=== PATIENT | female | born 1930 | race African-American/Black ===

== ENCOUNTER 2016-05-21 05:12 | Inpatient (IN) ==
[2016-05-21] MEDS ORDERED: ALUM/MAG/SIMETH/LIDO VISC 1:1 30 ML BOTTLE PO STA (05:26)
[2016-05-21] MEDS ORDERED: NITROGLYCERIN 2% OINT 1 INCH/GM PACK TOP STA (05:26)
[2016-05-21] MEDS ORDERED: ONDANSETRON 4 MG/2 ML VIAL IV STA (05:26)
[2016-05-21] MEDS ORDERED: ASPIRIN 325 MG TABLET PO STA (05:26)
[2016-05-21] MEDS ORDERED: ALUM/MAG/SIMETH/LIDO VISC 1:1 30 ML BOTTLE PO ONE (05:30)
[2016-05-21] MEDS ORDERED: NITROGLYCERIN 2% OINT 1 INCH/GM PACK TOP ONE (05:30)
[2016-05-21] MEDS ORDERED: ONDANSETRON 4 MG/2 ML VIAL ONE (05:30)
[2016-05-21] MEDS ORDERED: ASPIRIN 325 MG TABLET ONE (05:30)
--- NOTE | 2016-05-21 05:30 | EKG Report ---
Stationary ECG Study [facility] ER Test Date: 05/21/2016 5:17:40 AM Pat Name: EVELYN ELISE Department: Room: Gender: F Bonding Machine Operator: : 1930 Requested by: Mark Anthony Anthony Order Number: [id number] Reading MD: ABHISHEK WELLINGTON Intervals [place] Rate: 80 P: 60 IA: 170 QRS: -54 QRSD: 98 T: 85 QT: 397 QTc: 433 Interpretive Statements SINUS RHYTHM PATTERN CONSISTENT WITH PULMONARY DISEASE LEFT ANTERIOR FASCICULAR BLOCK LEFT VENTRICULAR HYPERTROPHY AND ST-T CHANGE Electronically Signed On 05-21-16 05:46:57 BALANCE STAFF INSPECTOR by ABHISHEK WELLINGTON [id number]
[2016-05-21 05:38] LABS: Basophils # 0.1 10*3/uL (0.0-0.2); Basophils % 0.9 % (0.0-0.8); Eosinophils # 0.3 10*3/uL (0.0-0.87); Eosinophils % 5.2 % (0.00-10.9); Hematocrit 33.4 VOL% (35.7-47.0); Hemoglobin 10.9 GM/DL (12.0-16.0); Immature Granulocytes % 0.2 %; Immature Granulocytes Absolute 0.01 #; Lymphocytes # 2.3 10*3/uL (1.4-4.0); Lymphocytes % 35.8 % (21.3-54.2); Mean Corpuscular HGB Conc 32.6 GM/DL (32-36); Mean Corpuscular Hemoglobin 28 PG (27-34); Mean Corpuscular Volume 84.1 FL (87-102); Mean Platelet Volume 10.2 FL (9.6-12.0); Monocytes # 0.9 10*3/uL (0.11-0.8); Monocytes % 13.3 % (1.7-12.7); Neutrophils # 2.9 10*3/uL (1.4-7.4); Neutrophils % 44.6 % (38.7-73.9); Platelet Count 292 10*3/uL (130-400); Red Blood Count 3.97 10*6/uL (3.8-5.5); Red Cell Distribution Width 15.2 % (9.3-17.3); White Blood Count 6.4 10*3/uL (4.5-13.71)
--- NOTE | 2016-05-21 05:40 | Emergency Department Note ---
I, Cici Vaughn, am scribing for, and in the presence of, Mark Anthony Giraldo MD 05:32. IKritsal Charles R, MD, personally performed the services described in this documentation, ascribed by Cici Vaughn in my presence, and it is both accurate and complete [id number] . Arrival - Arrival ED Nursing Triage Note: PT ARRIVES VIA EMS WITH COMPLAINTS CHEST PAIN THAT STARTED WHEN SHE WOKE TO USE THE BATHROOM. PT TOOK 5 (FIVE) OF HER SL NITRO AND CALL EMS. DENIES ANY SOB, NAUSEA OR VOMITING. PT AT TIME OF TRIAGE STATES THAT SHE HAS "VERY LITTLE" PAIN. NO ACUTE DISTRESS NOTED Mode of Arrival: Stretcher Limitations: No Limitations Source: Patient - History of Present Illness Onset (ago): hour(s) Consistency: constant Severity: mild, moderate Severity scale (1-10): 3 Quality: sharp <Mark Anthony Giraldo - Last Filed: 05/21/16 05:41> <Don Emanuel - Last Filed: 05/21/16 05:45> - Arrival Chief Complaint: Chest Pain Stated Complaint: CHEST PAIN Time Seen by Provider: 05/21/16 05:23 - History of Present Illness HPI Narrative: Pt is a 85 y/o female that was brought to the ED via EMS for further evaluation of chest pain that occurred a few hours TREE KILLER. Pt states she does not currently have chest pain, SOB, nor did it radiate when she had it. She reports she woke up with the pain and took 5 nitroglycerin and called EMS, and she now complains of a massive TONY. Pt states she has a PMHx of DM and CHF. She also reports she has had CABG but does not know if she has stents saying "it was a long time ago. " Pt's poker manager is Dr. Dwyer. She also states she has been having swelling in her left leg for about a week now and had a doppler done on it May 10, 2016. No other complaints/pain in ED. (Mark Anthony Giraldo) Pt is a 85 y/o female that was brought to the ED via EMS for further evaluation of chest pain that occurred a few hours TREE KILLER. Pt states she does not currently have chest pain, SOB, nor did it radiate when she had it. She reports she woke up with the pain and took 5 nitroglycerin and called EMS, and she now complains of a massive TONY. Pt states she has a PMHx of DM and CHF. She also reports she has had CABG but does not know if she has stents saying "it was a long time ago. " Pt's poker manager is Dr. Dwyer. She also states she has been having swelling in her left leg for about a week now and had a doppler done on it May 10, 2016. No other complaints/pain in ED. (Cici Vaughn) Allergies/Adverse Reactions: Allergies Allergy/AdvReac Type Severity Reaction Status Date / Time codeine Allergy HIVES Verified 01/04/16 14:06 Penicillins Allergy RASH Verified 05/21/16 05:22 Sulfa (Sulfonamide Allergy RASH Verified 05/21/16 05:22 Antibiotics) Home Medications: Home Medications Medication Instructions Recorded Confirmed Type Aspirin [Ecotrin] 81 mg PO DAILY 01/04/16 05/21/16 History Dicyclomine Cap/Tab [Bentyl 20 mg PO QID PRN 01/04/16 05/21/16 History Cap/Tab] Esomeprazole Magnesium [Nexium] 40 mg PO DAILY 01/04/16 05/21/16 History Metoprolol Succinate 50 mg PO DAILY 01/04/16 05/21/16 History hydrALAZINE TAB [Apresoline Tab] 50 mg PO BID 01/04/16 05/21/16 History Aspirin EC Tab 81 mg PO DAILY #30 tablet 01/07/16 05/21/16 Rx Isosorbide Mononitrate [Imdur] 60 mg PO DAILY #30 tablet 01/07/16 05/21/16 Rx Nitroglycerin Sl Tab [Nitrostat] 0.4 mg SL Q5M PRN #25 tablet 01/07/16 05/21/16 Rx Rosuvastatin [Crestor] 10 mg PO BEDTIME #30 tablet 01/07/16 05/21/16 Rx Review of System - Review of System 12 point system: reviewed and no additional remarkable complaints except as stated - Review of System Constitutional: Absent: fever Respiratory: Absent: cough Cardiovascular: Present: chest pain (during episode but not currently in ED) Gastrointestinal: Absent: nausea, vomiting Musculoskeletal: Absent: arm pain, back pain, leg pain, neck pain Skin: Absent: rash Neurological: Present: headache. Absent: weakness, numbness, confusion Psychiatric: Absent: anxiety <Mark Anthony Giraldo - Last Filed: 05/21/16 05:41> Medical,Surgical,& Family Hx - Medical History Cardio: History of: CAD, Hypertension Endocrine: History of: Diabetes Mellitus (IDDM), Dyslipidemia Renal: History of: Renal Failure Gastrointestinal: History of: GERD - Surgical History Cardiac Surgeries: Sugical HX of: Cardiac Catheterization, Cardiac Surgery - Social History Smoking Status: Never smoker Frequency of Alcohol Use: None Type of Drug Use: None <Mark Anthony Giraldo R - Last Filed: 05/21/16 05:41> Exam - General General appearance: alert, in no apparent distress - Head Head exam: Present: atraumatic, normocephalic - Eye Eye exam: Present: PERRL, EOMI - ENT ENT exam: Present: mucous membranes moist. Absent: mucous membranes dry - Neck Neck exam: Present: full ROM. Absent: tenderness - Chest Chest inspection: Present: symmetric chest wall rise. Absent: tenderness - Respiratory Respiratory exam: Present: normal lung sounds bilaterally. Absent: respiratory distress - Cardiovascular Cardiovascular exam: Present: regular rate, normal rhythm, murmur (4 out of 6 systolic murmur) - Abdominal Exam Abdominal exam: Present: soft. Absent: tenderness - Extremities Exam Extremities exam: Present: full ROM, pedal edema (+2 pedal edema) - Back Exam Back exam: Present: full ROM. Absent: tenderness - Neurological Exam Neurological exam: Present: alert, oriented X3, CN II-XII intact. Absent: motor sensory deficit - Psychiatric Psychiatric exam: Present: normal affect, normal mood - Skin Skin exam: Present: warm, dry <Mark Anthony Giraldo - Last Filed: 05/21/16 05:41> Vital Signs: Vital Signs Temperature 97.8 F 05/21/16 05:12 Pulse Rate 85 05/21/16 05:12 Respiratory Rate 17 05/21/16 05:24 Blood Pressure 193/84 05/21/16 05:12 O2 Sat by Pulse Oximetry 98 05/21/16 05:12 (Mark Anthony Giraldo) (Cici Vaughn) (Don Emanuel) Course - Consultations Time: 05:40 <Mark Anthony Giraldo - Last Filed: 05/21/16 05:41> <Don Emanuel - Last Filed: 05/21/16 05:45> Course Narrative: Care assumed by Dr. Emanuel at 6 AM (Don Emanuel) - Consultations Consultation #1: Care was transferred to Dr. Emanuel ER physician (Mark Anthony Giraldo) Care was transferred to Dr. Emanuel ER physician (Cici Vaughn) Results - Labs CBC & BMP: 05/21/16 05:16 Lab Results: I have reviewed the patients labs <Mark Anthony Giraldo - Last Filed: 05/21/16 05:41> - Labs CBC & BMP: 05/21/16 05:16 <Don Emanuel - Last Filed: 05/21/16 05:45> - Labs Labs: Laboratory Tests 05/21/16 05:16 Hgb 10.9 L Hct 33.4 L MCV 84.1 L [place] % (Auto) 13.3 H Baso % (Auto) 0.[address] [place] # (Auto) 0.9 H (Cici Vaughn) Disposition Case discussed with: patient <Mark Anthony Giraldo - Last Filed: 05/21/16 05:41> Case discussed with: patient <Don Emanuel - Last Filed: 05/21/16 05:45> Clinical Impression: Chest pain, Chest pain, Essential (primary) hypertension, Dyslipidemia Disposition: Still a Patient Condition: Stable
[2016-05-21 05:46] LABS: PT Patient Result 11.1 SECS
[2016-05-21] MEDS ORDERED: ENOXAPARIN 80 MG/0.8 ML SYRINGE SUBCUT STA (06:09)
[2016-05-21 06:13] LABS: Albumin 3.3 G/DL (3.4-5.0); Bilirubin,Total 0.7 MG/DL (0.2-1.0); Calcium 8.2 MG/DL (8.5-10.1); Magnesium 2.3 MG/DL (1.8-2.4); Osmolality,Calculated 296.4 MOS/KG (273-304); Potassium 3.5 MMOL/L (3.5-5.1); Total Protein 6.7 G/DL (6.4-8.3)
[2016-05-21] MEDS ORDERED: ENOXAPARIN 80 MG/0.8 ML SYRINGE SUBCUT ONE (06:18)
--- NOTE | 2016-05-21 06:19 | XRay Report ---
Portable chest Date:[05/21/2016] Clinical history: Chest pain Comparison: 01/04/2016 Technique: Portable AP sitting chest Findings: The heart is minimally enlarged with prior median sternotomy. Calcification in the aortic knob. Chronic scarring in the lungs with atelectasis at the lung bases. Small left pleural effusion. Stable mediastinum with degenerative changes. Impression: Status post median sternotomy with chronic scarring. Small left pleural effusion with atelectasis/minimal infiltration at the lung bases. Followup chest x-ray recommended to document clearing. PROCEDURE INTERPRETED AT [facility] DEPARTMENT OF RADIOLOGY Final Report Signed by: Dr. Jacquelin Ortiz
[2016-05-21] MEDS ORDERED: MAGNESIUM SULF RIDER 4 GM in PREMIX 1 EACH IV PRN (08:16)
[2016-05-21] MEDS ORDERED: MAGNESIUM SULF RIDER 2 GM in PREMIX 1 EACH IV PRN (08:16)
[2016-05-21] MEDS ORDERED: ONDANSETRON 4 MG/2 ML VIAL IV PRN (08:16)
[2016-05-21] MEDS ORDERED: DOCUSATE SODIUM 100 MG CAPSULE PO PRN (08:16)
[2016-05-21] MEDS ORDERED: ZALEPLON 5 MG CAPSULE PO PRN (08:16)
[2016-05-21] MEDS ORDERED: DICYCLOMINE 20 MG TABLET PO PRN (08:18)
[2016-05-21] MEDS ORDERED: NITROGLYCERIN SL 0.4 MG TABLET SL PRN (08:18)
[2016-05-21] MEDS ORDERED: DEXTROSE 50% 25 GM/50 ML VIAL IV PRN (08:24)
[2016-05-21] MEDS ORDERED: GLUCAGON 1 MG VIAL IM PRN (08:24)
--- NOTE | 2016-05-21 08:24 | Cardiology History & Physical ---
Assessment and Plan (1) Chest pain Status: Acute Assessment and plan: 85-year-old female, history of CABG, chronic kidney disease stage IV, diabetes, hypertension, hyperlipidemia, presenting with chest pain, typical for angina, also with worsening lower extremity swelling. Borderline troponins. The pain was slow to respond to nitroglycerin. -CAD/ACS. Trend enzymes, repeak ECG, keep on telemetry. Continue aspirin. Load with Brilinta. Continue renally adjusted dose Lovenox for now. Cont statin. Cont imdur. -HTN. Increase hydralazine 100 mg to 3 times a day. Monitor heart rate closely , avoid reflex tachycardia. Incr metoprolol to 100 mg tid -CHF. lasix 40 mg iv today for edema. Some of this may be due to severe CKD. In the past, she was difficult to diurese due to the acute kidney injury. Will monitor closely. -Will also need to repeat a lower extremity DVT study. She is moderate risk for DVT/PE. -Echo. Systolic murmur, peaked S2 -Once the blood pressure is controlled, will proceed with a stress test. She had prior hospitalization with similar presentation, despite attempts with medical management. She has a history of remote CABG. High risk revascularization due to CKD but seems to fail medical management. -PPI Current Visit: Yes Qualifiers: Chest pain type: chest pain due to myocardial ischemia Qualified Code(s): I20.9 - Angina pectoris, unspecified (2) CKD (chronic kidney disease) stage 4, GFR 15-29 ml/min Status: Chronic Current Visit: No (3) S/P CABG (coronary artery bypass graft) Status: Chronic Current Visit: No (4) HTN (hypertension) Status: Chronic Current Visit: No Qualifiers: Hypertension type: essential hypertension Qualified Code(s): I10 - Essential (primary) hypertension (5) Essential (primary) hypertension Status: Acute Current Visit: Yes (6) Dyslipidemia Status: Acute Current Visit: Yes History of Present Illness Chief complaint: CP, HTN History of present illness: Ms. Harmon is a 85 year old female with history of remote CABG, followed by Dr. Dwyer. She was hospitalized with unstable angina, small STEMI few months ago and was treated medically. She has chronic kidney disease stage IV. She also has hypertension, which was poorly controlled. She was seen by Dr. Dwyer in May 10 for progressive lower extremity swelling, for 3 weeks. A lower extremity ultrasound ruled out DVT. She was hypertensive with systolic blood pressure in the 190s, hydralazine was increased to 100 mg twice a day. She felt better for a few days but yesterday she developed severe substernal chest pain at rest, which radiated inside. She was able to sleep but when she woke up this morning the pain recurred after she ambulated to the bathroom. She took 5 pills of nitroglycerin without relief. She came to the emergency room. Initial troponin 0.2, EKG shows borderline nonspecific changes. She is currently chest pain-free. She was hypertensive, with systolic blood pressure 180 on admission, now it's 160. She denies any black or bloody stools, bleeding issues, shortness of breath palpitations or syncope. She is compliant with her medications. Home Medications Medication Instructions Recorded Confirmed Type Aspirin [Ecotrin] 81 mg PO DAILY 01/04/16 05/21/16 History Dicyclomine Cap/Tab [Bentyl 20 mg PO QID PRN 01/04/16 05/21/16 History Cap/Tab] Esomeprazole Magnesium [Nexium] 40 mg PO DAILY 01/04/16 05/21/16 History Metoprolol Succinate 50 mg PO DAILY 01/04/16 05/21/16 History hydrALAZINE TAB [Apresoline Tab] 50 mg PO BID 01/04/16 05/21/16 History Aspirin EC Tab 81 mg PO DAILY #30 tablet 01/07/16 05/21/16 Rx Isosorbide Mononitrate [Imdur] 60 mg PO DAILY #30 tablet 01/07/16 05/21/16 Rx Nitroglycerin Sl Tab [Nitrostat] 0.4 mg SL Q5M PRN #25 tablet 01/07/16 05/21/16 Rx Rosuvastatin [Crestor] 10 mg PO BEDTIME #30 tablet 01/07/16 05/21/16 Rx Allergies Allergy/AdvReac Type Severity Reaction Status Date / Time codeine Allergy HIVES Verified 01/04/16 14:06 Penicillins Allergy RASH Verified 05/21/16 05:22 Sulfa (Sulfonamide Allergy RASH Verified 05/21/16 05:22 Antibiotics) 12 point system: reviewed and no additional remarkable complaints except as stated Medical,Surgical,& Family Hx - Medical History Cardio: History of: CAD, Hypertension Endocrine: History of: Diabetes Mellitus (IDDM), Dyslipidemia Renal: History of: Renal Failure Gastrointestinal: History of: GERD - Surgical History Cardiac Surgeries: Sugical HX of: Cardiac Catheterization, Cardiac Surgery - Social History Smoking Status: Never smoker Frequency of Alcohol Use: None Type of Drug Use: None Cardiology Physical Exam - Constitutional Vitals: Vital Signs Temp Pulse Resp BP Pulse Ox 97.8 F 85 17 193/84 98 05/21/16 05:12 05/21/16 05:12 05/21/16 05:24 05/21/16 05:12 05/21/16 05:12 Intake and Output 05/20/16 05/21/16 05/21/16 23:59 07:59 15:59 Other: Weight 70.307 kg Patient Weight 05/21/16 23:59 Weight 70.307 kg General appearance: normal weight - Head Head exam: Present: normal inspection - Eye Eye exam: Absent: conjunctival injection Pupils: Absent: constricted - ENT ENT exam: Present: normal exam - Neck Neck exam: Present: normal inspection - Respiratory Respiratory exam: Present: decreased breath sounds - Cardiovascular Cardiovascular exam: Present: regular rate and rhythm, systolic murmur - GI/Abdominal GI/Abdominal exam: Present: normal bowel sounds - Extremities Exam Extremities exam: Present: normal inspection, normal capillary refill, edema (2 + b/l) - Back Exam Back exam: Present: normal inspection - Neurological Exam Neurological exam: Present: alert, oriented X3 - Psychiatric Psychiatric exam: Present: normal affect, normal mood - Skin Skin exam: Present: normal color, warm. Absent: cyanosis Result/EKG - Labs CBC & BMP: 05/21/16 05:16 05/21/16 05:16 Lab Results: I have reviewed the past 24 hour labs Labs: Laboratory Results - last 24 hr 05/21/16 05/21/16 05/21/16 05:16 05:16 05:16 WBC 6.4 RBC 3.97 Hgb 10.9 L Hct 33.4 L MCV 84.1 L MCH 28 MCHC 32.6 RDW 15.2 Plt Count 292 MPV 10.2 Neut % (Auto) 44.6 Lymph % (Auto) 35.8 [place] % (Auto) 13.3 H Eos % (Auto) 5.2 Baso % (Auto) 0.9 H Neut # (Auto) 2.9 Lymph # (Auto) 2.3 [place] # (Auto) 0.9 H Eos # (Auto) 0.3 Baso # (Auto) 0.1 Immature Gran % 0.2 Nucleated RBC % 0.0 Immature Gran # 0.01 Nucleated RBCs # 0.00 INR 1.0 PT Patient/Control Mix 11.1 Sodium Potassium Chloride Carbon Dioxide Anion Gap BUN Creatinine GFR Calculation BUN/Creatinine Ratio Glucose Calculated Osmolality Calcium Magnesium Total Bilirubin AST ALT Alkaline Phosphatase Troponin I 0.288 H B-Natriuretic Peptide Total Protein Albumin Globulin Albumin/Globulin Ratio Lipase 05/21/16 05/21/16 05:16 05:16 WBC RBC Hgb Hct MCV MCH MCHC RDW Plt Count MPV Neut % (Auto) Lymph % (Auto) [place] % (Auto) Eos % (Auto) Baso % (Auto) Neut # (Auto) Lymph # (Auto) [place] # (Auto) Eos # (Auto) Baso # (Auto) Immature Gran % Nucleated RBC % Immature Gran # Nucleated RBCs # INR PT Patient/Control Mix Sodium 147 H Potassium 3.5 Chloride 111 H Carbon Dioxide 21 Anion Gap 18.5 H BUN 25 H Creatinine 2.40 H GFR Calculation 21 BUN/Creatinine Ratio 10.00 Glucose 110 H Calculated Osmolality 296.4 Calcium 8.2 L Magnesium 2.3 Total Bilirubin 0.70 AST 25 ALT 17 Alkaline Phosphatase 78 Troponin I B-Natriuretic Peptide 831 H Total Protein 6.7 Albumin 3.3 L Globulin 3.4 Albumin/Globulin Ratio 0.9 L Lipase 275.0 - EKG EKG results: interpreted by me Quality Measures - VTE Contraindication to Pharmacological VTE Prophylaxis: Already on Theraputic Agent , No Prophylaxis Needed
[2016-05-21] MEDS ORDERED: TICAGRELOR 90 MG TABLET PO STA (08:31)
[2016-05-21] MEDS ORDERED: NON-FORMULARY MEDICATION (Esomeprazole Magnesium [Nexium] 40 MG) PO SCH (09:00)
[2016-05-21] MEDS ORDERED: METOPROLOL SUCCINATE XL 50 MG TABLET PO SCH (09:00)
--- NOTE | 2016-05-21 09:35 | EKG Report ---
Stationary ECG Study [facility] ER Test Date: 05/21/2016 9:33:14 AM Pat Name: EVELYN ELISE Department: Room: Gender: F Microsoft Exchange Architect: CHAPARRITA : 1930 Requested by: Mark Anthony Anthony Order Number: [id number] Reading MD: ABHISHEK WELLINGTON Intervals [place] Rate: 75 P: 66 RI: 179 QRS: -61 QRSD: 96 T: 77 QT: 399 QTc: 427 Interpretive Statements SINUS RHYTHM MARKED LEFT AXIS DEVIATION MINIMAL VOLTAGE CRITERIA FOR LVH, CONSIDER NORMAL VARIANT NONSPECIFIC T-WAVE ABNORMALITY Electronically Signed On 05-21-16 20:51:46 CLASP MACHINE OPERATOR by ABHISHEK WELLINGTON [email or web address]
--- NOTE | 2016-05-21 09:48 | Ultrasound Report ---
Exam: Bilateral lower extremity venous Doppler ultrasound Comparison: 05/10/2016 Clinical history: Bilateral leg swelling Technique: Duplex scan of the lower extremity veins using B-mode/grayscale scaled imaging and Doppler spectral analysis and color flow. Findings: Major venous structures of the lower extremities demonstrate a normal course and caliber. Normal color-flow study and spectral analysis. There is normal compression and augmentation of bilateral common femoral, superficial femoral and popliteal veins. The proximal bilateral greater saphenous veins appear to be patent. Impression: No evidence to suggest deep venous thrombosis within either lower extremity. Ultrasound images were captured and stored. PROCEDURE INTERPRETED AT [facility] DEPARTMENT OF RADIOLOGY Final Report Signed by: Dr. Jacquelin Ortiz
[2016-05-21] MEDS: ASPIRIN EC 81 MG TABLET PO SCH (12:25)
[2016-05-21] MEDS: METOPROLOL SUCCINATE XL 100 MG TABLET PO SCH (12:26)
[2016-05-21] MEDS: PANTOPRAZOLE 40 MG TABLET PO SCH (12:26)
[2016-05-21] MEDS: ISOSORBIDE MONONITRATE 60 MG TABLET PO SCH (12:26)
--- NOTE | 2016-05-21 12:38 | EKG Report ---
Stationary ECG Study [facility] Test Date: 05/21/2016 12:36:33 PM Pat Name: EVELYN ELISE Department: Room: 293 Gender: F Player Development Executive: LISA : 1930 Requested by: Mark Anthony Anthony Order Number: [id number] Reading MD: ABHISHEK WELLINGTON Intervals [place] Rate: 69 P: 51 AR: 152 QRS: -83 QRSD: 90 T: 28 QT: 418 QTc: 438 Interpretive Statements SINUS RHYTHM INDETERMINATE AXIS S1-S2-S3 PATTERN, CONSISTENT WITH PULMONARY DISEASE, RVH, OR NORMAL VARIANT LEFT ANTERIOR FASCICULAR BLOCK Electronically Signed On 05-21-16 20:55:43 COSTUMED CHARACTER by ABHISHEK WELLINGTON [email or web address]
[2016-05-21] MEDS: INSULIN LISPRO 100 UNIT/ML SUBCUT SCH ×3 (13:01→21:41)
--- NOTE | 2016-05-21 19:05 | ECHO Report ---
Harmon Sparkle 05/21/2016 Exam Date: 10:14 Referring Physician: Maki Lopez Technologist: MYRA Age: 85 Ht (in): Wt (lb): FExam Location: [facility] Gender: Echo [id number]: Chest pain, unspecified, CAD with prIndications:evious CABG, Chronic kidney disease, stage 4 (severe), IDDM, Essential (primary) hypertension, Hyperlipidemia, unspecified, Cardiac murmur, unspecified, Heart failure, unspecified, Edema, unspecified BP: / HR: SinusRhythm: Technical Quality: IMPRESSIONS Normal left ventricular size, with mild concentric hypertrophy, with normal systolic function. Estimated left ventricular ejection fraction 55%. Grade 2 diastolic dysfunction. Dilated right-sided heart chambers with at least moderate pulmonary hypertension, severe tricuspid regurgitation. Moderate left atrial dilatation. Thickened mitral valve, with moderate regurgitation. Calcific aortic valve with moderate stenosis, with mild insufficiency. Moderate pulmonic valve insufficiency. MEASUREMENTS (Male / Female) Normal Values 2D ECHO LV Diastolic Diameter PLAX 4.4 cm 4.2 - 5.9 / 3.9 - 5.3 cm LV Systolic Diameter PLAX 2.8 cm LV Fractional Shortening PLAX 36.5 % IVS Diastolic Thickness 0.9 cm 0.6 - 1.0 / 0.6 - 0.9 cm LVPW Diastolic Thickness 0.9 cm 0.6 - 1.0 / 0.6 - 0.9 cm RV Internal Dim ED PLAX 3.3 cm Aortic Root Diameter 3.6 cm LA Systolic Diameter LX 4.0 cm 3.0 - 4.0 / 2.7 - 3.8 cm DOPPLER TR Peak Velocity 380.0 cm/s TR Peak Gradient 57.8 mmHg FINDINGS Left Ventricle Normal left ventricular size, with mild concentric hypertrophy, with normal systolic function. Estimated left ventricular ejection fraction 55%. Grade 2 diastolic dysfunction. Right Ventricle The right ventricle is moderately dilated, with normal systolic function. Right Atrium Severely dilated right atrium. Left Atrium Moderately increased left atrial size. Mitral Valve Thickened mitral valve. Moderate mitral regurgitation. Aortic Valve Thickened aortic valve. Moderate aortic stenosis, peak gradient 56, mean gradient 31 mmHg, calculated valve area of 1.1 cm. Mild insufficiency. Tricuspid Valve Morphologically normal tricuspid valve. Severe tricuspid valve regurgitation. Tricuspid regurgitation velocities suggest a PAP of 58 mmHg + RA pressure. The severity of pulmonary hypertension may be underestimated due to the severity of the tricuspid regurgitation. Pulmonic Valve Morphologically normal pulmonic valve. Moderate pulmonary valve regurgitation. Pericardium Normal pericardium without effusion. Aorta Normal ascending aorta dimension. Calin Wagoner (Electronically Signed) 21 May 2016 Final Date: 19:04
[2016-05-21] MEDS: ROSUVASTATIN 10 MG TABLET PO SCH (21:41)
[2016-05-22 05:18] LABS: Basophils # 0.1 10*3/uL (0.0-0.2); Basophils % 1.2 % (0.0-0.8); Eosinophils # 0.2 10*3/uL (0.0-0.87); Hematocrit 28.2 VOL% (35.7-47.0); Hemoglobin 9.3 GM/DL (12.0-16.0); Immature Granulocytes % 0.2 %; Immature Granulocytes Absolute 0.01 #; Lymphocytes # 1.6 10*3/uL (1.4-4.0); Lymphocytes % 26.7 % (21.3-54.2); Mean Corpuscular Hemoglobin 27 PG (27-34); Mean Corpuscular Volume 83.2 FL (87-102); Mean Platelet Volume 10.4 FL (9.6-12.0); Monocytes # 0.9 10*3/uL (0.11-0.8); Monocytes % 15.4 % (1.7-12.7); Neutrophils # 3.2 10*3/uL (1.4-7.4); Neutrophils % 52.5 % (38.7-73.9); Platelet Count 278 10*3/uL (130-400); Red Blood Count 3.39 10*6/uL (3.8-5.5); Red Cell Distribution Width 15.3 % (9.3-17.3)
[2016-05-22 05:44] LABS: Calcium 7.9 MG/DL (8.5-10.1); Magnesium 2.2 MG/DL (1.8-2.4); Osmolality,Calculated 298.1 MOS/KG (273-304)
[2016-05-22] MEDS ORDERED: ENOXAPARIN 80 MG/0.8 ML SYRINGE SUBCUT SCH (09:00)
--- NOTE | 2016-05-22 09:46 | Cardiology Progress Note ---
Assessment and Plan - Time spent with patient Time spent with patient: Less than 30 minutes (1) Chest pain Status: Acute Assessment and plan: See plan of care below Current Visit: Yes Qualifiers: Chest pain type: chest pain due to myocardial ischemia Qualified Code(s): I20.9 - Angina pectoris, unspecified (2) Dyslipidemia Status: Chronic Assessment and plan: Continue lipid lowering agent Current Visit: Yes (3) Essential (primary) hypertension Status: Chronic Assessment and plan: Much better controlled Current Visit: Yes (4) CAD (coronary artery disease) Status: Chronic Assessment and plan: Current plan of care continues Current Visit: No Qualifiers: Coronary Disease-Associated Artery/Lesion type: [place] artery [place] vs. transplanted heart: [place] heart Associated angina: with stable angina Qualified Code(s): I25.119 - Atherosclerotic heart disease of [place] coronary artery with unspecified angina pectoris (5) CKD (chronic kidney disease) stage 4, GFR 15-29 ml/min Status: Chronic Current Visit: No (6) HTN (hypertension) Status: Chronic Current Visit: No Qualifiers: Hypertension type: essential hypertension Qualified Code(s): I10 - Essential (primary) hypertension (7) S/P CABG (coronary artery bypass graft) Status: Chronic Current Visit: No Cardiology - PN: Subj Interval history: Ms. Harmon is a 85 year old female with history of remote CABG, followed by Dr. Dwyer. She was hospitalized with unstable angina, small STEMI few months ago and was treated medically. She has chronic kidney disease stage IV. She also has hypertension, which was poorly controlled. She was seen by Dr. Dwyer in May 10 for progressive lower extremity swelling, for 3 weeks. A lower extremity ultrasound ruled out DVT. She was hypertensive with systolic blood pressure in the 190s, hydralazine was increased to 100 mg twice a day. She presented to the ER May 21, 2016 with complaints of severe substernal chest pain at rest. Initial troponin 0.2, (max 0.3), EKG showed borderline nonspecific changes. She is currently chest pain-free. She was hypertensive, with systolic blood pressure 180 on admission, now it's improved with medication adjustments. NPO for stress testing this morning. No recurrent chest pain. Breathing is non -labored. -CAD/ACS. - NPO for stress test this morning. Continue aspirin, she has been loaded with Brilinta and taking daily now. (May consider increasing to BID dosing). Continue renally adjusted dose Lovenox for now. Cont statin. Cont imdur. -HTN. - better controlled with increased hydralazine 100 mg to 3 times a day. Monitor heart rate closely, avoid reflex tachycardia. Increased metoprolol to 100 mg tid yesterday as well -CHF - Received Lasix 40 mg iv yesterday. I & O not recorded. Weight suspected to be inaccurate. In the past, she was difficult to diurese due to the acute kidney injury. Will monitor closely. -DVT study negative. She is moderate risk for DVT/PE. -Echo - revelas EF 55%, Grade 2 DD, Moderate MR, Moderate , PAP 58mmHg + RAP - continue current plan of care. -History of remote CABG. High risk revascularization due to CKD but seems to fail medical management. -PPI continues Exam (Progress Note) - Constitutional Vitals: Period Temp Pulse Resp BP Sys/Escalante Pulse Ox Last 24 Hr 98.1 F-99.4 F 59-73 16-20 122-162/50-73 94-98 General appearance: normal weight, no acute distress - Head Head exam: Present: normocephalic, atraumatic - Eye Eye exam: Absent: nystagmus, periorbital swelling Pupils: Present: [place]. Absent: constricted - ENT ENT exam: Present: normal external ear exam, normal oropharynx - Neck Neck exam: Absent: lymphadenopathy, tenderness - Respiratory Respiratory exam: Absent: accessory muscle use, decreased breath sounds - Cardiovascular Cardiovascular exam: Present: regular rate and rhythm, systolic murmur (II/ LAUREN heard best at BUSB). Absent: gallop - GI/Abdominal GI/Abdominal exam: Present: normal bowel sounds, soft. Absent: mass, tenderness - Extremities Exam Extremities exam: Present: normal capillary refill, full ROM. Absent: calf tenderness - Back Exam Back exam: Absent: CVA tenderness (L), CVA tenderness (R) - Neurological Exam Neurological exam: Present: alert, oriented X3, normal gait - Psychiatric Psychiatric exam: Present: normal affect, normal mood. Absent: anxious - Skin Skin exam: Present: warm, dry. Absent: rash Result/EKG - Labs CBC & BMP: 05/22/16 04:35 05/22/16 04:35 Lab Results: I have reviewed the past 24 hour labs Labs: Laboratory Results - last 24 hr 05/21/16 05/21/16 05/21/16 09:37 15:47 19:34 WBC RBC Hgb Hct MCV MCH MCHC RDW Plt Count MPV Neut % (Auto) Lymph % (Auto) [place] % (Auto) Eos % (Auto) Baso % (Auto) Neut # (Auto) Lymph # (Auto) [place] # (Auto) Eos # (Auto) Baso # (Auto) Immature Gran % Nucleated RBC % Immature Gran # Nucleated RBCs # Sodium Potassium Chloride Carbon Dioxide Anion Gap BUN Creatinine GFR Calculation BUN/Creatinine Ratio Glucose POC Glucose 151 H 144 H Calculated Osmolality Calcium Magnesium Troponin I 0.371 H D 05/22/16 05/22/16 05/22/16 04:35 04:35 08:08 WBC 6.0 RBC 3.39 L Hgb 9.3 L Hct 28.2 L MCV 83.2 L MCH 27 MCHC 33.0 RDW 15.3 Plt Count 278 MPV 10.4 Neut % (Auto) 52.5 Lymph % (Auto) 26.7 [place] % (Auto) 15.4 H Eos % (Auto) 4.0 Baso % (Auto) 1.2 H Neut # (Auto) 3.2 Lymph # (Auto) 1.6 [place] # (Auto) 0.9 H Eos # (Auto) 0.2 Baso # (Auto) 0.1 Immature Gran % 0.2 Nucleated RBC % 0.0 Immature Gran # 0.01 Nucleated RBCs # 0.00 Sodium 149 H Potassium 4.0 Chloride 113 H Carbon Dioxide 24 Anion Gap 16.0 H BUN 23 H Creatinine 2.60 H GFR Calculation 17 BUN/Creatinine Ratio 8.00 Glucose 79 POC Glucose 83 Calculated Osmolality 298.1 Calcium 7.9 L Magnesium 2.2 Troponin I - Diagnostic Findings Procedure: Chest x-ray: report reviewed by me, Ultrasound: report reviewed by me - EKG EKG results: interpreted by me EKG shows: sinus rhythm Quality Measures - VTE Contraindication to Pharmacological VTE Prophylaxis: Already on Theraputic Agent , No Prophylaxis Needed
[2016-05-22] MEDS ORDERED: REGADENOSON 0.4 MG/5 ML SYRINGE IV ONE (10:08)
--- NOTE | 2016-05-22 10:21 | Event Note ---
Underwent Lexiscan stress testing without complaints of chest pain, heaviness. No EKG or ST changes. Now to Nuclear Medicine for final scan. Dr. Wagoner to read , interpret and advise.
[2016-05-22] MEDS: ISOSORBIDE MONONITRATE 60 MG TABLET PO SCH (11:02)
[2016-05-22] MEDS: METOPROLOL SUCCINATE XL 100 MG TABLET PO SCH (11:02)
[2016-05-22] MEDS: ASPIRIN EC 81 MG TABLET PO SCH (11:02)
[2016-05-22] MEDS: TICAGRELOR 90 MG TABLET PO SCH (11:02)
[2016-05-22] MEDS: PANTOPRAZOLE 40 MG TABLET PO SCH (11:02)
[2016-05-22] MEDS: INSULIN LISPRO 100 UNIT/ML SUBCUT SCH ×4 (11:21→20:36)
[2016-05-22] MEDS: ACETAMINOPHEN 325 MG TABLET PO PRN (12:22)
[2016-05-22] MEDS ORDERED: IBUPROFEN 200 MG TABLET PO ONE (13:50)
--- NOTE | 2016-05-22 17:49 | Event Note ---
The patient had an acute coronary syndrome with mild bump in cardiac enzymes and an abnormal stress test. She has had similar episodes in the past as well. She has not been doing well with conservative management and Dr. Ashford asked me to review the patient's case and consider cardiac catheterization. I reviewed her chart, tests, notes, medications. I discussed the potential for cardiac catheterization including the risks and alternatives. The patient wants to think about this and discuss it with her children which I think is quite appropriate. I have asked the nursing staff to keep her nothing by mouth except meds in the morning in case the patient and family wish to proceed to cardiac catheterization. I will check in tomorrow to see what they would like to do.
[2016-05-22] MEDS: ROSUVASTATIN 10 MG TABLET PO SCH (20:36)
[2016-05-23 05:44] LABS: Basophils # 0.1 10*3/uL (0.0-0.2); Basophils % 1.1 % (0.0-0.8); Eosinophils # 0.3 10*3/uL (0.0-0.87); Eosinophils % 3.9 % (0.00-10.9); Hematocrit 29.7 VOL% (35.7-47.0); Hemoglobin 9.9 GM/DL (12.0-16.0); Immature Granulocytes % 0.3 %; Immature Granulocytes Absolute 0.02 #; Lymphocytes # 1.7 10*3/uL (1.4-4.0); Lymphocytes % 25.9 % (21.3-54.2); Mean Corpuscular HGB Conc 33.3 GM/DL (32-36); Mean Corpuscular Hemoglobin 28 PG (27-34); Mean Corpuscular Volume 84.1 FL (87-102); Mean Platelet Volume 10.4 FL (9.6-12.0); Monocytes % 14.8 % (1.7-12.7); Neutrophils # 3.6 10*3/uL (1.4-7.4); Platelet Count 265 10*3/uL (130-400); Red Blood Count 3.53 10*6/uL (3.8-5.5); Red Cell Distribution Width 15.2 % (9.3-17.3); White Blood Count 6.6 10*3/uL (4.5-13.71)
[2016-05-23 06:18] LABS: Calcium 8.2 MG/DL (8.5-10.1); Magnesium 2.3 MG/DL (1.8-2.4); Osmolality,Calculated 294.4 MOS/KG (273-304)
--- NOTE | 2016-05-23 07:26 | Nuclear Medicine Report ---
TEST PERFORMED AND INTERPRETED BY: Dr. Lynnette Wagoner REASON FOR STRESS TEST: Chest pain. PROCEDURE: At rest, 10 mCi of Technetium 99 labeled Sestamibi was injected and rest images were obtained. The patient attempted the treadmill stress test, but due to gait instability this was transformed to a Lexiscan stress test, and 0.4 Lexiscan was injected IV. Post pharmacological stress, 30 mCi of Technetium 99 labeled Sestamibi was injected and post stress images were obtained. RESULTS: The resting blood pressure of 148/78 mmHg jessica to 162/78 mmHg post Lexiscan injection. A resting heart rate of 60 jessica to 75 beats per minute. There was no chest pain. At rest, EKG shows sinus rhythm with poor R-wave progression and flat T waves from V1 to V4, no significant ST-T changes post Lexiscan injection. Rest and post stress gated and perfusion images were obtained. There are no significant motion artifacts. The gated images show end -diastolic volume of 71 cc, end-systolic volume of 71 cc, calculated left ventricular ejection fraction 70%. Rest perfusion images show a moderate sized area in the mid to distal inferolateral/apical region of mild electrical activity, which becomes moderately to severely photopenic post Lexiscan injection. This is suggestive of reversible ischemia. CONCLUSIONS: 1. CLINICALLY NEGATIVE, ELECTRICALLY NONDIAGNOSTIC LEXISCAN STRESS TEST. 2. NORMAL LEFT VENTRICULAR SIZE, WITH NORMAL SYSTOLIC FUNCTION WITH REVERSIBLE ISCHEMIA IN THE MID/DISTAL INFERIOR/INFEROLATERAL/APICAL REGION. 3. THIS IS A MODERATE RISK TEST. Procedure performed and interpreted at [facility] Department of Radiology. CAMI
[2016-05-23] MEDS: INSULIN LISPRO 100 UNIT/ML SUBCUT SCH ×4 (08:22→21:27)
[2016-05-23] MEDS ORDERED: diphenhydrAMINE CAP 50 MG CAPSULE PO ONE (09:39)
[2016-05-23] MEDS: ASPIRIN EC 81 MG TABLET PO SCH (09:40)
[2016-05-23] MEDS: ISOSORBIDE MONONITRATE 60 MG TABLET PO SCH (09:40)
[2016-05-23] MEDS: METOPROLOL SUCCINATE XL 100 MG TABLET PO SCH (09:40)
[2016-05-23] MEDS: PANTOPRAZOLE 40 MG TABLET PO SCH (09:40)
[2016-05-23] MEDS ORDERED: DIAZEPAM 5 MG TABLET PO ONE (09:40)
[2016-05-23] MEDS: ACETYLCYSTEINE 600 MG CAPSULE PO SCH ×2 (09:40→21:41)
[2016-05-23] MEDS: SODIUM BICARB INJ 50 MEQ in SODIUM CHLORIDE 0.45% 1,000 ML IV SCH ×2 (09:41→21:01)
[2016-05-23] MEDS: TICAGRELOR 90 MG TABLET PO SCH (09:41)
[2016-05-23] MEDS ORDERED: HEPARIN/NACL 0.9% 2 UNITS/ML 1,000 ML IV ONE (10:22)
[2016-05-23] MEDS ORDERED: LIDOCAINE 1% 20 ML VIAL ONE (10:46)
[2016-05-23] MEDS ORDERED: HYDROmorphone 2 MG/1 ML VIAL ONE (10:46)
[2016-05-23] MEDS ORDERED: ENOXAPARIN 30 MG/0.3 ML SYRINGE ONE (11:17)
[2016-05-23] MEDS ORDERED: TICAGRELOR 90 MG TABLET ONE (12:09)
[2016-05-23] MEDS ORDERED: LABETALOL 20 MG/4 ML SYRINGE IV ONE (12:21)
--- NOTE | 2016-05-23 12:26 | Cardiac Catheterization ---
Date of Procedure:: 05/23/16 Procedure: CLINICAL SUMMARY: The patient presented with an acute coronary syndrome and is undergoing cardiac catheterization for definitive coronary artery assessment and possible revascularization. PROCEDURES PERFORMED: 1. Right femoral percutaneous arteriotomy 2. Left heart catheterization. 3. Resting hemodynamics. 4. Left ventriculography. 5. Coronary arteriography. 6. Right femoral arteriogram. 7. Angio-Seal closure of the right femoral artery. 8. Left internal mammary bypass graft selective angiography. 9. Percutaneous coronary intervention to the mid posterior descending artery with a 2.5 x 12 mm Xience Alpine drug-eluting stent.. 10. Percutaneous coronary intervention with balloon angioplasty of a side branch in the mid posterior descending artery which was jailed by the stent. DESCRIPTION OF PROCEDURE: After obtaining informed consent, the patient was brought to the cardiac catheterization lab where the right groin was prepped and draped in the usual sterile manner. Using IV sedation, local anesthesia, and Modified Seldinger technique, a needle was placed in the right femoral artery and a sheath was positioned without difficulty. A left coronary catheter was advanced over a guidewire under fluoroscopic control to the ascending aorta where a cardiac swing angiograms performed of the left coronary system. We used this approach to try to minimize contrast exposure. After adequate angiograms, this catheter was withdrawn and a right coronary catheter was advanced over a guidewire under fluoroscopic control to the ascending aorta with angiograms of the RCA and left internal mammary artery bypass graft were undertaken in numerous projections. We then proceeded directly to percutaneous coronary intervention. The right coronary artery had an extreme anterior takeoff and several guides were tried before we finally successfully engaged the vessel with a short AR-1 guide catheter. We passed a PT Graphix wire beyond the area of stenosis in the mid posterior descending artery and performed balloon angioplasty with a 2.5 x 12 mm [place] angioplasty balloon. We then placed a 2.5 x 12 mm Xience Alpine drug-eluting stent in this location. There was some residual stenosis just proximal to the stent and we performed balloon angioplasty of this location with the stent balloon. We then pulled our wire back and advanced it into the side branch which was jailed by the stent. We performed balloon angioplasty of the ostium of this branch with a 2.25 x 12 mm [place] angioplasty balloon. Follow-up A right femoral arteriogram was performed showing adequate sheath placement for closure device deployment. The sheath was then removed and an Angio-Seal device was used to obtain hemostasis. The patient was transferred back to the room having suffered no immediate complications. HEMODYNAMICS: See the accompanying data sheet. CORONARY ARTERIOGRAPHY: LEFT MAIN: The left main coronary artery is a large caliber vessel, which trifurcates into the left anterior descending, ramus intermedius, and left circumflex coronary arteries. The left main coronary artery has a 30-40% distal tapering. LEFT CIRCUMFLEX: The left circumflex coronary artery is a moderate size vessel which gives off a couple of small obtuse marginal/posterolateral branches. There are diffuse luminal irregularities of up to 30-40% in the circumflex coronary artery but no high-grade lesions are seen. RAMUS INTERMEDIUS: Ramus intermedius is a moderate size vessel which courses over the anterolateral wall. There is a lesion of around 50% in its midsegment and otherwise there are some mild luminal irregularities, but I don't see any high-grade disease. LEFT ANTERIOR DESCENDING: The left anterior descending artery is occluded at its origin from the left main coronary artery, but the distal vessel is seen filling via patent left internal mammary arterial graft. RIGHT CORONARY ARTERY: The right coronary artery is a moderate size vessel which gives off a posterior descending artery and a posterolateral system. There is a 40% ostial stenosis and there are diffuse moderate luminal irregularities of up to 40-50% in the mid right coronary artery. There is a focal 99% stenosis involving a bifurcation point in the mid posterior descending artery. There is a 60% stenosis just proximal to this high-grade lesion. LEFT INTERNAL MAMMARY TO LEFT ANTERIOR DESCENDING: This is a moderate size bypass graft which is widely patent throughout its course. PERIPHERAL ARTERIOGRAPHY: Right femoral arteriogram shows a normal right iliofemoral artery with adequate sheath placement for closure device deployment. IMPRESSIONS: 1. Successful percutaneous coronary intervention to the mid posterior descending artery with stenting of the largest branch with a 2.5 x 12 mm Xience Alpine drug-eluting stent and balloon angioplasty of the side branch as described above. 2. Patent left internal mammary to left anterior descending coronary artery graft. 3. Mild to moderate residual disease in the left circumflex, ramus intermedius , and right coronary arteries which would manage medically at this time. 4. Normal right iliofemoral system with successful Angio-Seal closure of this vessel. PLAN: Because of the patient's renal insufficiency, we attempted to minimize contrast exposure during this procedure. We did successfully revascularized a high-grade lesion in the mid posterior descending artery. Hopefully this will alleviate the patient's recurrent unstable angina symptoms. There were no apparent problems or complications during the procedure. She will be transferred back to telemetry and will watch her renal function closely. Anesthesia: minimal conscious sedation Surgeon / Physician: Frantz Duggan Estimated blood loss: minimal Condition: stable Disposition: floor - Medications / Follow-up
[2016-05-23] MEDS ORDERED: SODIUM CHLORIDE 0.9% 1,000 ML IV SCH (12:30)
--- NOTE | 2016-05-23 13:12 | Cardiology Progress Note ---
Assessment and Plan (1) Unstable angina Status: Acute Assessment and plan: Successful stenting of the mid posterior descending artery as detailed in the cath report. We used a 2.5 x 12 mm Xience Alpine drug-eluting stent. Current Visit: Yes (2) Status post insertion of drug eluting coronary artery stent Status: Acute Current Visit: Yes (3) Dyslipidemia Status: Chronic Current Visit: Yes (4) Essential (primary) hypertension Status: Chronic Current Visit: Yes (5) CAD (coronary artery disease) Status: Chronic Current Visit: No Qualifiers: Coronary Disease-Associated Artery/Lesion type: [place] artery [place] vs. transplanted heart: [place] heart Associated angina: with stable angina Qualified Code(s): I25.119 - Atherosclerotic heart disease of [place] coronary artery with unspecified angina pectoris (6) CKD (chronic kidney disease) stage 4, GFR 15-29 ml/min Status: Chronic Assessment and plan: We'll have to watch her renal function closely after contrast exposure. She has been treated with Mucomyst, hydration, and bicarbonate. Current Visit: No (7) HTN (hypertension) Status: Chronic Current Visit: No Qualifiers: Hypertension type: essential hypertension Qualified Code(s): I10 - Essential (primary) hypertension (8) S/P CABG (coronary artery bypass graft) Status: Chronic Current Visit: No Cardiology - PN: Subj Interval history: The patient did well overnight. She had no new cardiac problems or complications. We took her to cardiac catheterization today which did demonstrate a high-grade lesion in the mid posterior descending artery of the bifurcation point. We successfully stented this with a 2.5 x 12 mm Xience Alpine drug-eluting stent. The stent did intermediate the side branch so we performed balloon angioplasty through the site of stent into the side branch. There were no problems or complications with the procedure. Because of the patient's renal insufficiency we did not perform ventriculogram, and try to limit her contrast exposure as much as possible. I think we ended up using less than 90 mL of contrast for the procedure. We will keep a close eye on her renal function. Hopefully this will alleviate the patient's recurrent unstable angina symptoms. Current Medications Acetaminophen (Tylenol Tab) 650 mg PO Q4H PRN PRN Reason: Fever, Headache, Mild Pain Last Admin: 05/22/16 12:22 Dose: 650 mg Acetylcysteine (Mucomyst Cap (Renal Protect)) 600 mg PO BID [facility] Last Admin: 05/23/16 09:40 Dose: 600 mg Aspirin () 81 mg PO DAILY [facility] Last Admin: 05/23/16 09:40 Dose: 81 mg Dextrose/Water (D50) 25 gm IV PRN PRN PRN Reason: Hypoglycemia with IV access Dicyclomine HCl (Bentyl Cap/Tab) 20 mg PO QID PRN PRN Reason: Abdominal Pain Docusate Sodium (Colace Cap) 100 mg PO BID PRN PRN Reason: Constipation Glucagon () 1 mg IM PRN PRN PRN Reason: Hypoglycemia w/o IV access Hydralazine HCl (Apresoline Tab) 100 mg PO TID [facility] Last Admin: 05/23/16 09:40 Dose: 100 mg Magnesium Sulfate 2 gm/ Premix 50 mls @ 25 mls/hr IV .PER PROTOCOL PRN; Protocol PRN Reason: Per Protocol Magnesium Sulfate 4 gm/ Premix 100 mls @ 25 mls/hr IV .PER PROTOCOL PRN; Protocol PRN Reason: Per Protocol Sodium Bicarbonate 50 meq/ (Sodium Chloride) 1,050 mls @ 100 mls/hr IV .[id number] [facility] Last Admin: 05/23/16 09:41 Dose: 100 mls/hr Sodium Chloride (Ns) 1,000 mls @ 125 mls/hr IV .Q8H [facility] Stop: 05/23/16 20:29 Insulin Human Lispro (Humalog) 0 unit SUBCUT ACHS [facility] PRN Reason: Protocol Last Admin: 05/23/16 08:22 Dose: Not Given Isosorbide Mononitrate (Imdur) 60 mg PO DAILY [facility] Last Admin: 05/23/16 09:40 Dose: 60 mg Metoprolol Succinate (Toprol Xl) 100 mg PO DAILY [facility] Last Admin: 05/23/16 09:40 Dose: 100 mg Nitroglycerin (Nitrostat) 0.4 mg SL Q5M PRN PRN Reason: Chest Pain Ondansetron HCl (Zofran Inj) 4 mg IV Q4H PRN PRN Reason: Nausea Pantoprazole Sodium (Protonix Tab) 40 mg PO DAILY [facility] Last Admin: 05/23/16 09:40 Dose: 40 mg Rosuvastatin Calcium (Crestor) 10 mg PO BEDTIME [facility] Last Admin: 05/22/16 20:36 Dose: 10 mg Ticagrelor (Brilinta) 90 mg PO DAILY [facility] Last Admin: 05/23/16 09:41 Dose: 90 mg Zaleplon (Sonata) 5 mg PO BEDTIME PRN PRN Reason: Insomnia Exam (Progress Note) - Constitutional Exam: General: Frail, elderly in no acute distress HEENT: Normocephalic, atraumatic Neck: Supple Neck, Midline Trachea Cardiac: Regular Rhythm, 2 out of 6 Murmur, no gallop, no rub Lungs: Clear to Ascultation, No Wheeze, Rales, Rhonchi Neuro: Cranial Nerve 2-12 Intact, diffuse generalized weakness Abdomen: Soft, Active Bowel Sounds, No Masses, No Pulsations/Bruits Skin: Normal color, no rash Extremities: No Clubbing, No Cyanosis, No Edema, Normal Upper Extr. Pulses Musculoskeletal: No acute abnormality noted Psychiatric: The patient is alert and oriented. The patient has a flat affect but does not appear to be anxious or depressed. Result/EKG - Labs CBC & BMP: 05/23/16 05:15 05/23/16 05:15 Lab Results: I have reviewed the past 24 hour labs - EKG EKG results: interpreted by me Quality Measures - VTE Contraindication to Pharmacological VTE Prophylaxis: Already on Theraputic Agent , No Prophylaxis Needed
[2016-05-23] MEDS: ROSUVASTATIN 10 MG TABLET PO SCH (21:02)
[2016-05-24 06:21] LABS: Basophils # 0.1 10*3/uL (0.0-0.2); Basophils % 0.6 % (0.0-0.8); Hematocrit 29.6 VOL% (35.7-47.0); Hemoglobin 9.6 GM/DL (12.0-16.0); Immature Granulocytes % 0.2 %; Immature Granulocytes Absolute 0.02 #; Lymphocytes # 1.4 10*3/uL (1.4-4.0); Lymphocytes % 16.8 % (21.3-54.2); Mean Corpuscular HGB Conc 32.4 GM/DL (32-36); Mean Corpuscular Hemoglobin 27 PG (27-34); Mean Corpuscular Volume 83.9 FL (87-102); Mean Platelet Volume 9.9 FL (9.6-12.0); Monocytes % 12.2 % (1.7-12.7); Neutrophils # 5.8 10*3/uL (1.4-7.4); Neutrophils % 70.2 % (38.7-73.9); Platelet Count 274 10*3/uL (130-400); Red Blood Count 3.53 10*6/uL (3.8-5.5); Red Cell Distribution Width 15.2 % (9.3-17.3); White Blood Count 8.2 10*3/uL (4.5-13.71)
[2016-05-24 06:47] LABS: Calcium 8.3 MG/DL (8.5-10.1); Magnesium 2.2 MG/DL (1.8-2.4); Osmolality,Calculated 292.6 MOS/KG (273-304)
[2016-05-24 06:52] LABS: CKMB % 9.6 %
[2016-05-24 06:58] LABS: Troponin I Only 14.4 NG/ML (0.00-0.045)
[2016-05-24 07:39] LABS: Calcium 8.3 MG/DL (8.5-10.1); Magnesium 2.1 MG/DL (1.8-2.4); Osmolality,Calculated 289.7 MOS/KG (273-304)
[2016-05-24] MEDS: METOPROLOL SUCCINATE XL 100 MG TABLET PO SCH (09:55)
[2016-05-24] MEDS: TICAGRELOR 90 MG TABLET PO SCH (09:55)
[2016-05-24] MEDS: ASPIRIN EC 81 MG TABLET PO SCH (09:55)
[2016-05-24] MEDS: ACETYLCYSTEINE 600 MG CAPSULE PO SCH ×2 (09:55→21:26)
[2016-05-24] MEDS: PANTOPRAZOLE 40 MG TABLET PO SCH (09:55)
[2016-05-24] MEDS: ISOSORBIDE MONONITRATE 60 MG TABLET PO SCH (09:55)
[2016-05-24] MEDS: INSULIN LISPRO 100 UNIT/ML SUBCUT SCH ×4 (10:27→21:26)
[2016-05-24] MEDS: SODIUM BICARB INJ 50 MEQ in SODIUM CHLORIDE 0.45% 1,000 ML IV SCH ×2 (10:27→18:37)
[2016-05-24] MEDS: ACETAMINOPHEN 325 MG TABLET PO PRN (13:26)
--- NOTE | 2016-05-24 14:04 | XRay Report ---
XR chest 2V Indication: Fever Comparison: 21 May 2016 Findings: The heart and mediastinum are stable in size and configuration with cardiac surgery changes. The pulmonary vascularity is normal in caliber. Lung volumes are increased with prominent bronchial markings. There is increased left lower lung density and effusion when compared to previous. No other lung infiltrates, effusions, pneumothorax or other abnormality is demonstrated. Impression: Increased left lower lung density and effusion, may represent worsening pneumonia. PROCEDURE INTERPRETED AT [facility] DEPARTMENT OF RADIOLOGY Final Report Signed by: Dr. Javier Giron
[2016-05-24 14:22] LABS: Apearance,Urine CLOUDY (Clear); Bacteria,Urine Many /HPF (Few); Bilirubin,Urine Negative (Negative); Blood, Urine Negative (Negative); Glucose,Urine (UA) Negative (Negative); Ketones,Urine 20 mg/dL (Negative); Mucus,Urine Occasional /LPF (Occasional); Nitrite,Urine Negative (Negative); Protein,Urine 30 MG/DL; Urine Color Yellow (Yellow); Urine Specific Gravity 1.018 (1.001-1.035); Urine Urobilinogen < 2.0 EU/DL (0.2-1.0); WBC,Urine 1350 /HPF (0-6)
--- NOTE | 2016-05-24 15:41 | Cardiology Progress Note ---
Assessment and Plan (1) Unstable angina Status: Acute Assessment and plan: Successful stenting of the mid posterior descending artery as detailed in the cath report. We used a 2.5 x 12 mm Xience Alpine drug-eluting stent. Current Visit: Yes (2) Status post insertion of drug eluting coronary artery stent Status: Acute Current Visit: Yes (3) Dyslipidemia Status: Chronic Current Visit: Yes (4) Essential (primary) hypertension Status: Chronic Current Visit: Yes (5) CAD (coronary artery disease) Status: Chronic Current Visit: No Qualifiers: Coronary Disease-Associated Artery/Lesion type: [place] artery [place] vs. transplanted heart: hopi heart Associated angina: with stable angina Qualified Code(s): I25.119 - Atherosclerotic heart disease of hopi coronary artery with unspecified angina pectoris (6) CKD (chronic kidney disease) stage 4, GFR 15-29 ml/min Status: Chronic Assessment and plan: Her creatinine is actually improved today which was a nice surprise. Current Visit: No (7) HTN (hypertension) Status: Chronic Current Visit: No Qualifiers: Hypertension type: essential hypertension Qualified Code(s): I10 - Essential (primary) hypertension (8) S/P CABG (coronary artery bypass graft) Status: Chronic Current Visit: No (9) Urinary tract infection Status: Acute Assessment and plan: The patient had a low-grade temp today and urinalysis shows UTI. I'm going to initiate antibiotic therapy. Current Visit: Yes (10) Pulmonary infiltrate on chest x-ray Status: Acute Assessment and plan: There is a questionable infiltrate on her chest x-ray. I am starting Levaquin for urinary tract infection. The patient is not having any cough or other symptoms of pneumonia, so this may not actually represent coronary infection. We will follow this clinically and adjust her treatment as needed. Current Visit: Yes Cardiology - PN: Subj Interval history: The patient has done well from a cardiac perspective since her intervention yesterday. She has not had any anginal symptoms or dyspnea. Her creatinine actually dropped from 2.8 to 2.6 after catheterization. She had some oozing from her groin but this has resolved. Her hemoglobin is stable this morning so she did not lose a significant amount of blood. She has been a little bit weak today and had a low-grade temperature this morning. Her chest x-ray shows questionable infiltrate, and her urinalysis does show evidence of urinary tract infection. I'm going to initiate antibiotic therapy at this time. Hopefully this will begin to clear quickly so that we can transition her to an outpatient status. Current Medications Acetaminophen (Tylenol Tab) 650 mg PO Q4H PRN PRN Reason: Fever, Headache, Mild Pain Last Admin: 05/24/16 13:26 Dose: 650 mg Acetylcysteine (Mucomyst Cap (Renal Protect)) 600 mg PO BID [facility] Last Admin: 05/24/16 09:55 Dose: 600 mg Aspirin () 81 mg PO DAILY [facility] Last Admin: 05/24/16 09:55 Dose: 81 mg Dextrose/Water (D50) 25 gm IV PRN PRN PRN Reason: Hypoglycemia with IV access Dicyclomine HCl (Bentyl Cap/Tab) 20 mg PO QID PRN PRN Reason: Abdominal Pain Docusate Sodium (Colace Cap) 100 mg PO BID PRN PRN Reason: Constipation Glucagon () 1 mg IM PRN PRN PRN Reason: Hypoglycemia w/o IV access Hydralazine HCl (Apresoline Tab) 100 mg PO TID [facility] Last Admin: 05/24/16 09:55 Dose: 100 mg Magnesium Sulfate 2 gm/ Premix 50 mls @ 25 mls/hr IV .PER PROTOCOL PRN; Protocol PRN Reason: Per Protocol Magnesium Sulfate 4 gm/ Premix 100 mls @ 25 mls/hr IV .PER PROTOCOL PRN; Protocol PRN Reason: Per Protocol Sodium Bicarbonate 50 meq/ (Sodium Chloride) 1,050 mls @ 100 mls/hr IV .[id number] [facility] Last Admin: 05/24/16 10:27 Dose: Not Given Levofloxacin/Dextrose 500 mg/ (Premix) 100 mls @ 100 mls/hr IV Q24H [facility] Insulin Human Lispro (Humalog) 0 unit SUBCUT ACHS [facility] PRN Reason: Protocol Last Admin: 05/24/16 13:41 Dose: Not Given Isosorbide Mononitrate (Imdur) 60 mg PO DAILY [facility] Last Admin: 05/24/16 09:55 Dose: 60 mg Metoprolol Succinate (Toprol Xl) 100 mg PO DAILY [facility] Last Admin: 05/24/16 09:55 Dose: 100 mg Nitroglycerin (Nitrostat) 0.4 mg SL Q5M PRN PRN Reason: Chest Pain Ondansetron HCl (Zofran Inj) 4 mg IV Q4H PRN PRN Reason: Nausea Pantoprazole Sodium (Protonix Tab) 40 mg PO DAILY [facility] Last Admin: 05/24/16 09:55 Dose: 40 mg Rosuvastatin Calcium (Crestor) 10 mg PO BEDTIME [facility] Last Admin: 05/23/16 21:02 Dose: 10 mg Ticagrelor (Brilinta) 90 mg PO DAILY [facility] Last Admin: 05/24/16 09:55 Dose: 90 mg Zaleplon (Sonata) 5 mg PO BEDTIME PRN PRN Reason: Insomnia Last Admin: 05/23/16 21:02 Dose: 5 mg Exam (Progress Note) - Constitutional Vitals: Period Temp Pulse Resp BP Sys/Escalante Pulse Ox Last 24 Hr 98.6 F-100.1 F 63-69 18-20 135-159/50-74 94-99 Exam: General: Frail, elderly in no acute distress HEENT: Normocephalic, atraumatic Neck: Supple Neck, Midline Trachea Cardiac: Regular Rhythm, 2 out of 6 Murmur, no gallop, no rub Groin: Stable after cardiac catheterization without evidence of complication Lungs: Clear to Ascultation, No Wheeze, Rales, Rhonchi Neuro: Cranial Nerve 2-12 Intact, diffuse generalized weakness Abdomen: Soft, Active Bowel Sounds, No Masses, No Pulsations/Bruits Skin: Normal color, no rash Extremities: No Clubbing, No Cyanosis, No Edema, Normal Upper Extr. Pulses Musculoskeletal: No acute abnormality noted Psychiatric: The patient is alert and oriented. The patient has a flat affect but does not appear to be anxious or depressed. Result/EKG - Labs CBC & BMP: 05/24/16 06:02 05/24/16 06:02 Lab Results: I have reviewed the past 24 hour labs Labs: Laboratory Results - last 24 hr 05/23/16 05/23/16 05/24/16 16:09 20:06 06:02 WBC 8.2 RBC 3.53 L Hgb 9.6 L Hct 29.6 L MCV 83.9 L MCH 27 MCHC 32.4 RDW 15.2 Plt Count 274 MPV 9.9 Neut % (Auto) 70.2 Lymph % (Auto) 16.[address] [place] % (Auto) 12.2 Eos % (Auto) 0.0 Baso % (Auto) 0.6 Neut # (Auto) 5.8 Lymph # (Auto) 1.4 [place] # (Auto) 1.0 H Eos # (Auto) 0.0 Baso # (Auto) 0.1 Immature Gran % 0.2 Nucleated RBC % 0.0 Immature Gran # 0.02 Nucleated RBCs # 0.00 Sodium Potassium Chloride Carbon Dioxide Anion Gap BUN Creatinine GFR Calculation BUN/Creatinine Ratio Glucose POC Glucose 78 136 H Calculated Osmolality Calcium Magnesium Total Creatine Kinase CK-MB (CK-2) CK and CKMB Interp Troponin I Urine Color Urine Appearance Urine pH Ur Specific [place] Urine Protein Urine Glucose (UA) Urine Ketones Urine Blood Urine Nitrate Urine Bilirubin Urine Urobilinogen Urine Leukocytes Urine WBC Urine WBC Clumps Urine Bacteria Urine Mucus Ur Culture Indicated? 05/24/16 05/24/16 05/24/16 06:02 06:02 06:02 WBC RBC Hgb Hct MCV MCH MCHC RDW Plt Count MPV Neut % (Auto) Lymph % (Auto) [place] % (Auto) Eos % (Auto) Baso % (Auto) Neut # (Auto) Lymph # (Auto) [place] # (Auto) Eos # (Auto) Baso # (Auto) Immature Gran % Nucleated RBC % Immature Gran # Nucleated RBCs # Sodium 146 H 145 Potassium 4.0 4.0 Chloride 108 H 108 H Carbon Dioxide 24 22 Anion Gap 18.0 H 19.0 H BUN 23 H 22 H Creatinine 2.60 H 2.60 H GFR Calculation 17 17 BUN/Creatinine Ratio 8.00 8.00 Glucose 87 84 POC Glucose Calculated Osmolality 292.6 289.7 Calcium 8.3 L 8.3 L Magnesium 2.2 2.1 Total Creatine Kinase 419 H CK-MB (CK-2) 40.1 H CK and CKMB Interp 9.6 Troponin I 14.400 H D Urine Color Urine Appearance Urine pH Ur Specific [place] Urine Protein Urine Glucose (UA) Urine Ketones Urine Blood Urine Nitrate Urine Bilirubin Urine Urobilinogen Urine Leukocytes Urine WBC Urine WBC Clumps Urine Bacteria Urine Mucus Ur Culture Indicated? 05/24/16 05/24/16 05/24/16 07:10 11:54 Unknown WBC RBC Hgb Hct MCV MCH MCHC RDW Plt Count MPV Neut % (Auto) Lymph % (Auto) [place] % (Auto) Eos % (Auto) Baso % (Auto) Neut # (Auto) Lymph # (Auto) [place] # (Auto) Eos # (Auto) Baso # (Auto) Immature Gran % Nucleated RBC % Immature Gran # Nucleated RBCs # Sodium Potassium Chloride Carbon Dioxide Anion Gap BUN Creatinine GFR Calculation BUN/Creatinine Ratio Glucose POC Glucose 84 86 Calculated Osmolality Calcium Magnesium Total Creatine Kinase CK-MB (CK-2) CK and CKMB Interp Troponin I Urine Color Yellow Urine Appearance Cloudy Urine pH 5.0 Ur Specific [place] 1.018 Urine Protein 30 Urine Glucose (UA) Negative Urine Ketones 20 Urine Blood Negative Urine Nitrate Negative Urine Bilirubin Negative Urine Urobilinogen < 2.0 H Urine Leukocytes Large H Urine WBC 1350 Urine WBC Clumps Many Urine Bacteria Many Urine Mucus Occasional Ur Culture Indicated? Results to follow - EKG EKG results: interpreted by me Quality Measures - VTE Contraindication to Pharmacological VTE Prophylaxis: Already on Theraputic Agent , No Prophylaxis Needed
--- NOTE | 2016-05-24 15:53 | Cardiac Catheterization ---
Date of Procedure:: 05/24/16 Anesthesia: minimal conscious sedation Surgeon / Physician: Frantz Duggan Estimated blood loss: minimal Condition: stable Disposition: floor - Medications / Follow-up
[2016-05-24] MEDS ORDERED: LEVOFLOXACIN INJ 500 MG in PREMIX 1 EACH IV ONE (16:00)
[2016-05-24] MEDS: ROSUVASTATIN 10 MG TABLET PO SCH (21:26)
[2016-05-25] MEDS: SODIUM BICARB INJ 50 MEQ in SODIUM CHLORIDE 0.45% 1,000 ML IV SCH (04:24)
[2016-05-25] MEDS: METOPROLOL SUCCINATE XL 100 MG TABLET PO SCH (09:50)
[2016-05-25] MEDS: PANTOPRAZOLE 40 MG TABLET PO SCH (09:50)
[2016-05-25] MEDS: ACETYLCYSTEINE 600 MG CAPSULE PO SCH (09:51)
[2016-05-25] MEDS: INSULIN LISPRO 100 UNIT/ML SUBCUT SCH (09:51)
[2016-05-25] MEDS: ASPIRIN EC 81 MG TABLET PO SCH (09:51)
[2016-05-25] MEDS: ISOSORBIDE MONONITRATE 60 MG TABLET PO SCH (09:51)
[2016-05-25] MEDS: TICAGRELOR 90 MG TABLET PO SCH (09:51)
--- NOTE | 2016-05-25 10:18 | Discharge Summary ---
Hospital Course - Hospital Course Hospital Course: The patient was a very sweet 85-year-old female who presented with unstable angina symptoms. She's normally followed by Dr. Dwyer and has had multiple presentations with unstable angina. Because of her advanced age and renal insufficiency with attempted to manage this conservatively and previous admissions, but with her having recurrent problems we ultimately took her to cardiac catheterization, this admission, using as little contrast as possible, and found a high-grade lesion in the posterior descending artery. This was successfully stented with a 2.5 x 12 mm Xience Alpine drug-eluting stent. The stenosis was at a bifurcation point in the posterior descending artery and we also performed balloon angioplasty of the side branch through the side of the stent. A good angiographic result was achieved. The patient did very well after that with no further anginal symptoms. Her creatinine actually improved from 2.8 to 2.6 after the catheterization. On the morning after the catheterization, the patient had a low-grade temp, and urinalysis showed a urinary tract infection. We started her on antibiotics, and the fever resolved. She is clinically feeling back to her baseline. I think she can be safely discharged home at this time for continued outpatient management. I am going to give her a course of antibiotics as an outpatient and recheck an urinalysis when she comes back for follow-up. Of note, we are unable to give her an RONAL inhibitor or angiotensin receptor mally secondary to her renal insufficiency. Diagnosis - Discharge Diagnosis (1) Unstable angina Status: Acute (2) Status post insertion of drug eluting coronary artery stent Status: Acute (3) Dyslipidemia Status: Chronic (4) Essential (primary) hypertension Status: Chronic (5) CAD (coronary artery disease) Status: Chronic (6) CKD (chronic kidney disease) stage 4, GFR 15-29 ml/min Status: Chronic (7) HTN (hypertension) Status: Chronic (8) S/P CABG (coronary artery bypass graft) Status: Chronic (9) Urinary tract infection Status: Acute (10) Pulmonary infiltrate on chest x-ray Status: Acute Discharge Plan - Discharge Data Disposition: Disch To Home/Self Care - Discharge Medications New Ticagrelor [Brilinta] 90 mg PO DAILY #60 tablet Levofloxacin Tab [Levaquin Tab] 500 mg PO DAILY #7 tablet Continue hydrALAZINE TAB [Apresoline Tab] 50 mg PO BID Metoprolol Succinate 50 mg PO DAILY Aspirin EC Tab 81 mg PO DAILY #30 tablet Nitroglycerin Sl Tab [Nitrostat] 0.4 mg SL Q5M PRN #25 tablet PRN Reason: Chest Pain Pravastatin Sodium 20 mg PO DAILY - Follow Up or Referral Follow Up: Toney Dwyer MD [Primary Care Provider] - (1-2 weeks with CBC, CMP, magnesium, urinalysis, EKG) - Forms/Instructions Exam - Constitutional Vitals: Period Temp Pulse Resp BP Sys/Escalante Pulse Ox Last 24 Hr 97.4 F-100.1 F 61-66 18-20 136-159/64-70 96-98 Discharge Results Procedures and tests throughout hospitalization: Pending Orders 05/24/16 Urine Culture Routine 05/24/16 13:40 Blood Culture Routine Labs on day of discharge: Labs from last 24 hours 05/25/16 05/24/16 05/24/16 07:50 Unknown 19:51 POC Glucose 74 75 Urine Color Yellow Urine Appearance Cloudy Urine pH 5.0 Ur Specific [place] 1.018 Urine Protein 30 Urine Glucose (UA) Negative Urine Ketones 20 Urine Blood Negative Urine Nitrate Negative Urine Bilirubin Negative Urine Urobilinogen < 2.0 H Urine Leukocytes Large H Urine WBC 1350 Urine WBC Clumps Many Urine Bacteria Many Urine Mucus Occasional Ur Culture Indicated? Results to follow 05/24/16 05/24/16 16:16 11:54 POC Glucose 71 L 86 Urine Color Urine Appearance Urine pH Ur Specific [place] Urine Protein Urine Glucose (UA) Urine Ketones Urine Blood Urine Nitrate Urine Bilirubin Urine Urobilinogen Urine Leukocytes Urine WBC Urine WBC Clumps Urine Bacteria Urine Mucus Ur Culture Indicated? Preliminary micro results at discharge 05/24/16 Unknown Urine Culture - Preliminary Urine,Voided Gram Negative Rods Gram Negative Rods#2 DS: Provider Date of admission: 05/23/16 09:11 Primary care physician: Toney Dwyer MD Attending physician on admission: Calin Wagoner MD Discharging clinician: Frantz Duggan MD
[2016-05-25 12:31] VITALS: BP 167/68
[2016-05-25] MEDS ORDERED: LEVOFLOXACIN INJ 250 MG in PREMIX 1 EACH IV SCH (16:00)
== END 2016-05-25 13:51 | disposition home or self-care (01) | DRG 247 ==
LOC: EDBD → EDUNIT# → N.EDINP 05:12 → N.ED 05:12 → N.EDINP 11:25 → N.TELEN 11:55
PROVIDERS: ADMIT Internal Medicine Clinical Cardiac Electrophysiology; ATTEND Internal Medicine Clinical Cardiac Electrophysiology

== ENCOUNTER 2016-09-22 10:55 | Observation (INO) ==
--- NOTE | 2016-09-22 11:25 | EKG Report ---
Stationary ECG Study [facility] ER Test Date: 09/22/2016 11:14:41 AM Pat Name: EVELYN ELISE Department: Room: Gender: F Meter Calibrator: : [id number] Requested by: Jordan Prado Order Number: [id number] Reading MD: HANNAH QUIROGA Intervals [place] Rate: 116 P: 77 AL: 167 QRS: -67 QRSD: 96 T: 97 QT: 337 QTc: 406 Interpretive Statements SINUS TACHYCARDIA LEFT ANTERIOR FASCICULAR BLOCK Electronically Signed On 09-23-16 16:57:33 CDT by HANNAH QUIROGA [email or web address]
[2016-09-22 11:56] LABS: Basophils # 0.1 10*3/uL (0.0-0.2); Basophils % 0.9 % (0.0-0.8); Eosinophils % 0.4 % (0.00-10.9); Hemoglobin 12.7 GM/DL (12.0-16.0); Immature Granulocytes % 0.2 %; Immature Granulocytes Absolute 0.02 #; Lymphocytes # 1.7 10*3/uL (1.4-4.0); Lymphocytes % 19.2 % (21.3-54.2); Mean Corpuscular HGB Conc 34.3 GM/DL (32-36); Mean Corpuscular Hemoglobin 30 PG (27-34); Mean Corpuscular Volume 86.4 FL (87-102); Monocytes # 0.6 10*3/uL (0.11-0.8); Monocytes % 6.4 % (1.7-12.7); Neutrophils # 6.5 10*3/uL (1.4-7.4); Neutrophils % 72.9 % (38.7-73.9); Platelet Count 287 T/CUMM (130-400); Red Blood Count 4.28 MC/CUMM (3.8-5.5); Red Cell Distribution Width 14.6 % (9.3-17.3)
--- NOTE | 2016-09-22 12:00 | CT Report ---
CT brain Indication: Head injury after fall Comparison: The 09 July 2016 Technique: Axial CT imaging of the brain is performed without contrast with 3 mm increments. Findings: No evidence of hemorrhage, mass mass effect midline shift or acute infarct seen. The brain parenchyma attenuation and differentiation appears within normal limits. The ventricles and cisterns are normal in caliber. Soft tissue swelling is present adjacent to the frontal bone. No other cranial or skull base abnormality is identified. Impression: Soft tissue contusion. No other evidence of acute injury demonstrated. This CT exam was performed using one or more the following dose reduction techniques: Automated exposure control, adjustment of the MA and/or KV according to patient size, or use of iterative reconstruction technique. PROCEDURE INTERPRETED AT [facility] DEPARTMENT OF RADIOLOGY Final Report Signed by: Dr. Javier Giron
[2016-09-22 12:36] LABS: Calcium 9.5 MG/DL (8.5-10.1); Magnesium 2.8 MG/DL (1.8-2.4); Osmolality,Calculated 295.1 MOS/KG (273-304); Potassium 5.1 MMOL/L (3.5-5.1); Troponin I Only 0.025 NG/ML (0.00-0.045)
--- NOTE | 2016-09-22 14:28 | Emergency Department Note ---
I, Riaz Smith, am scribing for, and in the presence of, Jordan Downey M.D. 11:35. IShayan Howard T, M.D., personally performed the services described in this documentation, ascribed by Riaz Smith in my presence, and it is both accurate and complete 213 . Arrival - Arrival Chief Complaint: Syncope Stated Complaint: fall ED Nursing Triage Note: C/O FALLING THIS AM APX. 0800 , STATES SHE DOES NOT KNOW WHAT MADE HER FALL " I THINK I PASSED OUT" ., BRUISING NOTED TO THE FOREHEAD, SUPERFICAL NOTED TO NASAL AREA., SWELLING NOTED UNDERNEATH THE RIGHT EYE ., ASLO C/O PAIN TO THE UP LIP., DENIES HAVING DIZZINESS., DENIES HAVING NECK PAIN., DENIES BACK PAIN , GCS 15 Mode of Arrival: Wheelchair Limitations: No Limitations Source: Patient, Family Time Seen by Provider: 09/22/16 11:15 - History of Present Illness HPI Narrative: Pt is an 86 y/o black female carried to ED by daughter with c/o bruising and soreness due to a fall around 0800 this morning. Pt states that her daughter usually goes to the bathroom with her; however, daughter had worked a long slot shift supervisor and once home was tired so pt did not want to bother her when having to go to the bathroom this morning. Daughter states that this is the first time pt fell and she nor pt is quite sure what was the cause of the fall. Pt fell down on her face and complains of lip, nose, and left foot pain accompanied with dizziness. Pt also states that after falling, her mouth started to bleed but has ceased since then. Daughter also states that pt has had no appetite in a few days. Pt has a PMHx of pancreatitis, dementia, and COPD and has had one bypass in the pass. She currently takes Balanta for her stent that was placed in May. Pt complains of no other symptoms. Onset (ago): hour(s) Consistency: constant Severity: mild Severity scale (1-10): 3 Allergies/Adverse Reactions: Allergies Allergy/AdvReac Type Severity Reaction Status Date / Time codeine Allergy HIVES Verified 09/22/16 11:05 Penicillins Allergy RASH Verified 09/22/16 11:05 Sulfa (Sulfonamide Allergy RASH Verified 09/22/16 11:05 Antibiotics) Home Medications: Home Medications Medication Instructions Recorded Confirmed Type Tamsulosin [Flomax] 0.4 mg PO BEDTIME capsule 06/04/16 09/22/16 Rx Pravastatin [Pravachol] 20 mg PO DAILY 07/09/16 09/22/16 History Acetaminophen Tab [Tylenol Tab] 325 mg PO Q4H PRN #0 tablet 07/12/16 09/22/16 Rx Donepezil [Aricept] 10 mg PO DAILY 07/30/16 09/22/16 History Ergocalciferol (Vitamin D2) 50,000 unit PO TU 07/30/16 09/22/16 History [Vitamin D2] Furosemide Tab [Lasix Tab] 20 mg PO DAILY 07/30/16 09/22/16 History Nitroglycerin Sl Tab [Nitrostat] 0.4 mg SL Q5M PRN 07/30/16 09/22/16 History Pantoprazole Tab [Protonix Tab] 40 mg PO DAILY 07/30/16 09/22/16 History Ticagrelor [Brilinta] 90 mg PO DAILY 07/30/16 09/22/16 History amLODIPine [Norvasc] 10 mg PO DAILY 07/30/16 09/22/16 History Potassium Chloride 10 meq PO DAILY 09/22/16 09/22/16 History Review of System - Review of System 12 point system: reviewed and no additional remarkable complaints except as stated - Review of System Constitutional: Absent: chills, diaphoresis, fever Eyes: Absent: discharge, pain Head/Ears/Nose/Throat: Present: other (lip, nose, and forehead pain). Absent: earache, epistaxis Respiratory: Absent: cough, respiratory distress, wheezing Cardiovascular: Absent: chest pain, palpitations, dyspnea on exertion Gastrointestinal: Absent: abdominal pain, nausea, vomiting, diarrhea Genitourinary female: Absent: abnormal menses, dysuria Musculoskeletal: Present: other (left foot pain). Absent: arm pain, back pain, leg pain, neck pain Skin: Absent: rash, lesions Neurological: Absent: headache, weakness Psychiatric: Absent: anxiety, depression Medical,Surgical,& Family Hx - Medical History Cardio: History of: CAD, Hypertension Comment Only: Cardiovascular Problems (Stents placed 05/23/2016) Neurology: No history of: Seizures HEENT: History of: Glaucoma Endocrine: History of: Diabetes Mellitus (IDDM), Dyslipidemia Renal: History of: Renal Failure Gastrointestinal: History of: GERD - Surgical History Cardiac Surgeries: Sugical HX of: Cardiac Catheterization, Cardiac Surgery Reproductive Surgeries: Surgical HX of;: Hysterectomy - Family History Family History: Reports;: Family Diabetes, Family Heart Disease, Family Hypertension, Family Stroke - Social History Smoking Status: Never smoker Frequency of Alcohol Use: None Type of Drug Use: None Exam Vital Signs: Vital Signs Temperature 98.0 F 09/22/16 12:39 Pulse Rate 109 H 09/22/16 12:39 Respiratory Rate 18 09/22/16 12:39 Blood Pressure 144/67 09/22/16 12:39 O2 Sat by Pulse Oximetry 100 09/22/16 11:01 - General Exam limited due to: other (frail) General appearance: alert, in no apparent distress - Head Head exam: Present: atraumatic, normocephalic, normal inspection - Eye Eye exam: Present: normal appearance, PERRL, EOMI - ENT ENT exam: Present: normal exam, normal oropharynx, mucous membranes moist, TM's normal bilaterally, normal external ear exam - Neck Neck exam: Present: normal inspection, full ROM, trachea midline - Chest Chest inspection: Present: normal inspection, symmetric chest wall rise. Absent : tenderness - Respiratory Respiratory exam: Present: normal lung sounds bilaterally - Cardiovascular Cardiovascular exam: Present: regular rate, normal rhythm, murmur (systolic) - Abdominal Exam Abdominal exam: Present: soft, tenderness, normal bowel sounds. Absent: distention, guarding, rebound - Extremities Exam Extremities exam: Present: normal inspection, full ROM, tenderness (left foot). Absent: normal capillary refill - Back Exam Back exam: Present: normal inspection, full ROM. Absent: tenderness - Neurological Exam Neurological exam: Present: alert, oriented X3, CN II-XII intact, normal gait, reflexes normal - Psychiatric Psychiatric exam: Present: normal affect, normal mood - Skin Skin exam: Present: warm, dry, intact, normal color Course Course Narrative: Medical decision making: Family is not comfortable taking the patient home so contacted the hospitalist for overnight evaluation observation perhaps cardiology consultation in the morning. Results - Labs CBC & BMP: 09/22/16 11:45 09/22/16 11:45 Lab Results: I have reviewed the patients labs Labs: Laboratory Tests 09/22/16 11:45 MCV 86.4 L Lymph % (Auto) 19.2 L Baso % (Auto) 0.9 H - EKG EKG results: interpreted by CAROLINA (L axis deviation), sinus rhythm, not changed from: (05-27-16) EKG shows: tachycardia - Diagnostic Findings Procedure: CT: report reviewed by me (Head: Soft tissue contusion. No other evidence of acute injury demonstrated. ) Disposition Clinical Impression: Weakness, Fall, Abrasion of nose, Syncope Case discussed with: patient, patient's family Disposition: Still a Patient Condition: Stable Time of Disposition: 14:28
[2016-09-22] MEDS ORDERED: ONDANSETRON 4 MG/2 ML VIAL IV PRN (15:07)
[2016-09-22] MEDS ORDERED: ZALEPLON 5 MG CAPSULE PO PRN (15:07)
[2016-09-22] MEDS ORDERED: ACETAMINOPHEN 325 MG TABLET PO PRN (15:07)
--- NOTE | 2016-09-22 15:29 | Hospitalist History & Physical ---
Assessment and Plan (1) Syncope Status: Acute Assessment and plan: 86 year old female who "came to" after falling in the bathroom. Head CT negative for any acute intracranial process. Patient will be admitted for observation, child monitor, IV fluids. Current Visit: Yes (2) Acute on chronic kidney failure Status: Acute Assessment and plan: Baseline creatinine appears to be around 2.4. Patient is followed by Dr. Wright. Will hydrate gently with IV fluids. Repeat BMP in am. Current Visit: Yes (3) CAD (coronary artery disease) Problem details: 05/23/2016, received drug-eluting stent to mid posterior descending artery. Also received balloon angioplasty of a side branch in the mid posterior descending artery. Status: Chronic Assessment and plan: s/p PCI in May. Patient takes Brilinta daily. Current Visit: No Qualifiers: Coronary Disease-Associated Artery/Lesion type: [place] artery [place] vs. transplanted heart: [place] heart Associated angina: with stable angina Qualified Code(s): I25.118 - Atherosclerotic heart disease of [place] coronary artery with other forms of angina pectoris (4) HTN (hypertension) Status: Chronic Assessment and plan: Takes Norvasc daily. Well-controlled. Continue home meds. Current Visit: No Qualifiers: Hypertension type: essential hypertension Qualified Code(s): I10 - Essential (primary) hypertension (5) Physical deconditioning Status: Acute Assessment and plan: Patient may benefit from more aggressive PT and a walker for home use. Will consult PT to reevaluate. Current Visit: No History of Present Illness Chief complaint: sycope History of present illness: Ms. Harmon is a 86 year old female with a past medical history of CAD with PCI, hypertension, CHF and CKD who presents to the ER today with complaints of progressive fatigue and syncope with onset this morning. The patient had been in a prison after having a stent placed in May and recently moved back home with her daughter in mid-August. The daughter reports the patient had been doing well but has recently had a decreasing in her appetite and has become more prone to falls. She does have home health with physical therapy, but she still finds it difficult to get around without assistance. The patient stated that she needed to used the restroom this morning and didn't want to bother her daughter, so she went alone. As she was returning to bed, she apparently had a syncopal episode and fell onto her face, sustaining a few abrasions to the bridge of her nose and upper lip and causing several areas to swell. She reports "when she came to" she called for help from her daughter. She denies lightheadedness, headache, blurry vision, chest pain, shortness of breath, abdominal pain, N/V/D, lower extremity weakness or pain and swelling. She denies noticing any blood in the commode. She does, however, report facial swelling with associated pain. Head CT reveals a soft tissue contusion with no other evidence of acute injury demonstrated. Labs are unremarkable. The patient is a full code. The case has been discussed with Dr. Downey and Dr. Kaba and the patient will be admitted to the hospital medicine service for observation and further treatment overnight. Home Medications Medication Instructions Recorded Confirmed Type Tamsulosin [Flomax] 0.4 mg PO BEDTIME capsule 06/04/16 09/22/16 Rx Pravastatin [Pravachol] 20 mg PO DAILY 07/09/16 09/22/16 History Acetaminophen Tab [Tylenol Tab] 325 mg PO Q4H PRN #0 tablet 07/12/16 09/22/16 Rx Donepezil [Aricept] 10 mg PO DAILY 07/30/16 09/22/16 History Ergocalciferol (Vitamin D2) 50,000 unit PO TU 07/30/16 09/22/16 History [Vitamin D2] Furosemide Tab [Lasix Tab] 20 mg PO DAILY 07/30/16 09/22/16 History Nitroglycerin Sl Tab [Nitrostat] 0.4 mg SL Q5M PRN 07/30/16 09/22/16 History Pantoprazole Tab [Protonix Tab] 40 mg PO DAILY 07/30/16 09/22/16 History Ticagrelor [Brilinta] 90 mg PO DAILY 07/30/16 09/22/16 History amLODIPine [Norvasc] 10 mg PO DAILY 07/30/16 09/22/16 History Potassium Chloride 10 meq PO DAILY 09/22/16 09/22/16 History Allergies Allergy/AdvReac Type Severity Reaction Status Date / Time codeine Allergy HIVES Verified 09/22/16 11:05 Penicillins Allergy RASH Verified 09/22/16 11:05 Sulfa (Sulfonamide Allergy RASH Verified 09/22/16 11:05 Antibiotics) Medical,Surgical,& Family Hx - Medical History Cardio: History of: CAD, Hypertension Comment Only: Cardiovascular Problems (Stents placed 05/23/2016) Neurology: No history of: Seizures HEENT: History of: Glaucoma Endocrine: History of: Diabetes Mellitus (IDDM), Dyslipidemia Renal: History of: Renal Failure Gastrointestinal: History of: GERD - Surgical History Cardiac Surgeries: Sugical HX of: Cardiac Catheterization, Cardiac Surgery Reproductive Surgeries: Surgical HX of;: Hysterectomy - Family History Family History: Reports;: Family Diabetes, Family Heart Disease, Family Hypertension, Family Stroke - Social History Smoking Status: Never smoker Frequency of Alcohol Use: None Type of Drug Use: None Marital Status: Single Lives With:: Children Functional capacity: uses cane/walker - Constitutional Constitutional: Present: fatigue, frequent falls, weakness. Absent: chills, fever(s), headache(s) - EENT Eyes: Absent: blurry vision, loss of vision Ears: Absent: decreased hearing, ear pain Nose, mouth and throat: Absent: dysphagia, headache(s), sinus pressure, sore throat, vertigo - Cardiovascular Cardiovascular: Absent: chest pain at rest, chest pain with activity, dyspnea, dyspnea on exertion, edema, lightheadedness - Respiratory Respiratory: Absent: cough, dyspnea, hemoptysis, dyspnea on exertion, wheezing - Gastrointestinal Gastrointestinal: Present: early satiety. Absent: abdominal pain, change in bowel habits, constipation, diarrhea, nausea, vomiting - Genitourinary Genitourinary: Absent: difficulty urinating, dysuria, flank pain - Musculoskeletal Musculoskeletal: Absent: back pain, muscle weakness - Neurological Neurological: Present: frequent falls, syncope. Absent: abnormal gait, confusion - Psychiatric Psychiatric: Absent: confusion - Endocrine Endocrine: Present: fatigue. Absent: cold intolerance, heat intolerance - Hematologic/Lymphatic Hematologic/Lymphatic: Present: easy bleeding, easy bruising Exam - Constitutional Vitals: Period Temp Pulse Resp BP Sys/Escalante Pulse Ox Last 24 Hr 98.0 F-98.0 F 109-109 18-20 144-144/67-67 100 Exam: General appearance: underweight, no acute distress - Head Head exam: Present: normocephalic, atraumatic - Eye Eye exam: Present: EOMI. Absent: conjunctival injection, nystagmus Pupils: Present: WYATT, normal accommodation - ENT ENT exam: Present: normal exam, normal external ear exam - Neck Neck exam: Present: normal inspection. Absent: lymphadenopathy, tenderness, thyromegaly - Respiratory Respiratory exam: Present: clear to auscultation bilaterally. Absent: rales, rhonchi, wheezes - Cardiovascular Cardiovascular exam: Present: regular rate and rhythm. Absent: carotid bruit, gallop, rubs - GI/Abdominal GI/Abdominal exam: Present: normal bowel sounds. Absent: ascites, distended, mass - Extremities Exam Extremities exam: Present: normal inspection, normal capillary refill. Absent: edema - Back Exam Back exam: Absent: CVA tenderness (L), CVA tenderness (R) - Neurological Exam Neurological exam: Present: alert, oriented X3 - Psychiatric Psychiatric exam: Present: normal affect, normal mood - Skin Skin exam: Present: normal color, warm, dry Results - Labs CBC & BMP: 09/22/16 11:45 09/22/16 11:45 Lab Results: I have reviewed the past 24 hour labs
--- NOTE | 2016-09-22 15:33 | Event Note ---
This is an addendum to the H&P dictated by NASIMA Contreras. I have seen and examined the patient agree the assessment plan. Ms. Harmon is an 86-year-old female who presents with syncope. Will admit the patient to observation, obtain a carotid ultrasound and MRI of the brain. Echocardiogram previously obtained this year.
--- NOTE | 2016-09-22 17:08 | Ultrasound Report ---
Carotid artery ultrasound Indication: Syncope Comparison: None available Color Doppler flow and spectral analysis was performed. Findings: Small amount of atherosclerotic plaque is present in both proximal internal carotid arteries. The peak systolic velocity in the right is 51 cm/s . Ratio of flow is 0.5. The peak systolic velocity in the left is 57 cm/s . Ratio of flow is 1.0 Bilateral antegrade vertebral flow is seen. Impression: No evidence of hemodynamically significant stenosis is seen, 0-49% estimated stenosis. Consensus conference on the carotid ultrasound criteria used. Ultrasound images were captured and stored. PROCEDURE INTERPRETED AT [facility] DEPARTMENT OF RADIOLOGY Final Report Signed by: Dr. Javier Giron
[2016-09-22] MEDS ORDERED: NITROGLYCERIN SL 0.4 MG TABLET SL PRN (18:30)
[2016-09-22] MEDS: SODIUM CHLORIDE 0.9% 1,000 ML IV SCH ×2 (19:08→20:26)
[2016-09-22] MEDS: LACTULOSE 20 GM/30 ML UDCUP PO SCH ×3 (19:08→22:38)
[2016-09-22] MEDS: TICAGRELOR 90 MG TABLET PO SCH (19:08)
[2016-09-22] MEDS: DONEPEZIL 10 MG TABLET PO SCH (19:08)
[2016-09-22] MEDS: DOCUSATE SODIUM 100 MG CAPSULE PO SCH (20:26)
[2016-09-22] MEDS: PRAVASTATIN 20 MG TABLET PO SCH (20:26)
[2016-09-22] MEDS ORDERED: TAMSULOSIN 0.4 MG CAPSULE PO SCH (21:00)
[2016-09-23] MEDS: LACTULOSE 20 GM/30 ML UDCUP PO SCH ×3 (02:39→12:35)
[2016-09-23] MEDS: SODIUM CHLORIDE 0.9% 1,000 ML IV SCH ×2 (05:05→08:47)
[2016-09-23 05:16] LABS: Basophils # 0.1 10*3/uL (0.0-0.2); Basophils % 1.2 % (0.0-0.8); Eosinophils # 0.3 10*3/uL (0.0-0.87); Eosinophils % 4.2 % (0.00-10.9); Hematocrit 33.7 VOL% (35.7-47.0); Hemoglobin 11.1 GM/DL (12.0-16.0); Immature Granulocytes % 0.2 %; Immature Granulocytes Absolute 0.01 #; Lymphocytes % 31.1 % (21.3-54.2); Mean Corpuscular HGB Conc 32.9 GM/DL (32-36); Mean Corpuscular Hemoglobin 29 PG (27-34); Mean Corpuscular Volume 87.3 FL (87-102); Mean Platelet Volume 10.2 FL (9.6-12.0); Monocytes # 0.7 10*3/uL (0.11-0.8); Monocytes % 10.5 % (1.7-12.7); Neutrophils # 3.4 10*3/uL (1.4-7.4); Neutrophils % 52.8 % (38.7-73.9); Platelet Count 275 T/CUMM (130-400); Red Blood Count 3.86 MC/CUMM (3.8-5.5); Red Cell Distribution Width 14.6 % (9.3-17.3); White Blood Count 6.5 T/CUMM (4-12)
[2016-09-23 05:46] LABS: Calcium 8.7 MG/DL (8.5-10.1); Potassium 4.2 MMOL/L (3.5-5.1)
[2016-09-23] MEDS: DOCUSATE SODIUM 100 MG CAPSULE PO SCH (08:47)
[2016-09-23] MEDS: TICAGRELOR 90 MG TABLET PO SCH (08:47)
[2016-09-23] MEDS: DONEPEZIL 10 MG TABLET PO SCH (08:47)
[2016-09-23] MEDS: PRAVASTATIN 20 MG TABLET PO SCH (08:47)
[2016-09-23] MEDS ORDERED: PANTOPRAZOLE 40 MG TABLET PO SCH (09:00)
[2016-09-23] MEDS ORDERED: POTASSIUM CHLORIDE 10 MEQ TABLET PO SCH (09:00)
[2016-09-23] MEDS ORDERED: amLODIPine 10 MG TABLET PO SCH (09:00)
[2016-09-23] MEDS ORDERED: FUROSEMIDE 20 MG TABLET PO SCH (09:00)
--- NOTE | 2016-09-23 12:40 | Magnetic Resonance Report ---
History: Syncope Date: 09/23/2016 Study: MRI brain without IV contrast Comparison exam: CT head September 22, 2016 The brain was imaged in 3 planes on the 1.5 Meg magnet without IV contrast, to include diffusion, T2, FLAIR, gradient-echo, and T1-weighted sequences. No IV contrast was given. The ventricles are midline in position without evidence of hydrocephalus. There is no Chiari I malformation. There is no gross pituitary mass. There is no evidence of acute ischemia on the diffusion sequence. There is no acute parenchymal hemorrhage or area of mass effect. There is a [id number] amount of patchy increased FLAIR and T2 signal in the periventricular white matter without mass effect compatible with changes of small vessel disease. There is chronic lacunar ischemia in the right riggins radiata. There is no extra-axial hematoma. There is a normal flow void in the superior sagittal sinus. There is no gross focal abnormality in the [place] area. There is polypoid mucosal thickening in the left maxillary sinus. Impression: Chronic ischemic changes. No evidence of acute ischemia. Chronic left maxillary sinus disease PROCEDURE INTERPRETED AT [facility] [place] DEPARTMENT OF RADIOLOGY Final Report Signed by: Dr. Kelli Mcconnell
--- NOTE | 2016-09-23 13:14 | Discharge Summary ---
Hospital Course - Hospital Course Hospital Course: Ms. Harmon was admitted for evaluation of a syncopal event. She was admitted to observation and had a carotid ultrasound in addition to an MRI of her brain. MRI was unremarkable for any acute process and carotid ultrasound is clear. No events on telemetry. Blood pressures were noted to be stable during hospital stay. Patient had no recurrence and was at baseline doing well. No changes to her medications and by discharge she had met maximum benefit of hospitalization. I spent 32 minutes discussing this with the family and arranging discharge. - Time spent with patient Time with patient DS: Less than 30 minutes Discharge Plan - Discharge Data Disposition: Disch To Home/Self Care Condition at Discharge: Stable Discharge Diet: advance to your usual diet Activity: resume usual activities as tolerated Hygiene: no restrictions - Discharge Medications Continue Pravastatin [Pravachol] 20 mg PO DAILY Nitroglycerin Sl Tab [Nitrostat] 0.4 mg SL Q5M PRN PRN Reason: Chest Pain Ergocalciferol (Vitamin D2) [Vitamin D2] 50,000 unit PO TU Ticagrelor [Brilinta] 90 mg PO DAILY Donepezil [Aricept] 10 mg PO DAILY amLODIPine [Norvasc] 10 mg PO DAILY Furosemide Tab [Lasix Tab] 20 mg PO DAILY Tamsulosin [Flomax] 0.4 mg PO BEDTIME capsule Acetaminophen Tab [Tylenol Tab] 325 mg PO Q4H PRN #0 tablet PRN Reason: fever, headache/body aches Pantoprazole Tab [Protonix Tab] 40 mg PO DAILY Potassium Chloride 10 meq PO DAILY - Follow Up or Referral - Forms/Instructions Exam - Constitutional Vitals: Period Temp Pulse Resp BP Sys/Escalante Pulse Ox Last 24 Hr 97.4 F-98.6 F 72-96 14-20 135-150/57-77 96-100 General appearance: normal weight, no acute distress - Head Head exam: Present: normal inspection, normocephalic, atraumatic - Eye Eye exam: Present: EOMI Pupils: Present: WYATT - ENT ENT exam: Present: normal exam - Neck Neck exam: Present: normal inspection - Respiratory Respiratory exam: Present: clear to auscultation bilaterally. Absent: accessory muscle use, prolonged expiratory phase, wheezes - Cardiovascular Cardiovascular exam: Present: regular rate and rhythm. Absent: bradycardia, irregular rhythm, systolic murmur - GI/Abdominal GI/Abdominal exam: Present: normal bowel sounds. Absent: ascites, distended, hypoactive bowel sounds, tenderness - Extremities Exam Extremities exam: Present: normal inspection Discharge Results Labs on day of discharge: Labs from last 24 hours 09/23/16 09/23/16 09/23/16 06:57 04:48 04:48 WBC 6.5 RBC 3.86 Hgb 11.1 L Hct 33.7 L MCV 87.3 MCH 29 MCHC 32.9 RDW 14.6 Plt Count 275 MPV 10.2 Neut % (Auto) 52.8 Lymph % (Auto) 31.1 [place] % (Auto) 10.5 Eos % (Auto) 4.2 Baso % (Auto) 1.2 H Neut # (Auto) 3.4 Lymph # (Auto) 2.0 [place] # (Auto) 0.7 Eos # (Auto) 0.3 Baso # (Auto) 0.1 Immature Gran % 0.2 Nucleated RBC % 0.0 Immature Gran # 0.01 Nucleated RBCs # 0.00 Sodium 143 Potassium 4.2 Chloride 109 H Carbon Dioxide 25 Anion Gap 13.2 BUN 38 H Creatinine 2.80 H GFR Calculation 14 BUN/Creatinine Ratio 13.00 Glucose 73 L POC Glucose 73 L Calculated Osmolality 292.0 Calcium 8.7 DS: Provider Date of admission: 09/22/16 14:56 Primary care physician: Toney Dwyer MD Attending physician on admission: Naomi Kaba MD Consults: 09/22/16 15:10 Consult to Physical Therapy [CONS] Routine Reason for Physical Therapy: Weakness Start Therapy: Today 09/22/16 18:39 Consult to Dietitian [CONS] Routine Reason for Dietitian: Dietary Consult 09/23/16 10:28 Consult to Case Mgmt/Social Srvs [CONS] Routine Reason for Case Mgmt/Social Srvs: Equipment Consult Comment: Rollator Walker Discharging clinician: Naomi Kaba MD Expected date of discharge: 09/23/16
[2016-09-23 13:20] VITALS: BP 133/60
[2016-09-24] MEDS ORDERED: ERGOCALCIFEROL 50,000 UNIT CAPSULE PO SCH (09:00)
== END 2016-09-23 15:27 | disposition home or self-care (01) ==
LOC: N.EDINP 10:55 → N.ED 10:55 → N.2E 18:15
PROVIDERS: ADMIT Internal Medicine; ATTEND Internal Medicine

== ENCOUNTER 2017-05-09 18:06 | Inpatient (IN) ==
[2017-05-09] MEDS ORDERED: ONDANSETRON 4 MG/2 ML VIAL IV STA (20:10)
[2017-05-09] MEDS ORDERED: SODIUM CHLORIDE 0.9% 1,000 ML IV STA (20:10)
[2017-05-09] MEDS ORDERED: LEVOFLOXACIN INJ 750 MG in PREMIX 1 EACH IV STA (20:10)
[2017-05-09] MEDS ORDERED: METOCLOPRAMIDE 10 MG/2 ML VIAL IV STA (20:10)
[2017-05-09 20:43] LABS: Basophils % 0.4 % (0.0-0.8); Hematocrit 43.2 VOL% (35.7-47.0); Hemoglobin 14.2 GM/DL (12.0-16.0); Immature Granulocytes % 0.4 %; Immature Granulocytes Absolute 0.04 #; Lymphocytes # 0.9 10*3/uL (1.4-4.0); Mean Corpuscular HGB Conc 32.9 GM/DL (32-36); Mean Corpuscular Hemoglobin 29 PG (27-34); Mean Corpuscular Volume 86.9 FL (87-102); Mean Platelet Volume 9.5 FL (9.6-12.0); Monocytes # 0.4 10*3/uL (0.11-0.8); Monocytes % 4.3 % (1.7-12.7); Neutrophils # 8.2 10*3/uL (1.4-7.4); Neutrophils % 85.9 % (38.7-73.9); Platelet Count 400 T/CUMM (130-400); Red Blood Count 4.97 MC/CUMM (3.8-5.5); Red Cell Distribution Width 15.5 % (9.3-17.3); White Blood Count 9.5 T/CUMM (4-12)
[2017-05-09] MEDS ORDERED: METOCLOPRAMIDE 10 MG/2 ML VIAL ONE (20:53)
[2017-05-09] MEDS ORDERED: ONDANSETRON 4 MG/2 ML VIAL ONE (20:53)
[2017-05-09] MEDS ORDERED: LEVOFLOXACIN INJ 150 ML IV ONE (20:53)
[2017-05-09 21:12] LABS: Albumin 4.4 G/DL (3.4-5.0); Bilirubin,Total 1.1 MG/DL (0.2-1.0); Osmolality,Calculated 292.4 MOS/KG (273-304); Potassium 4.3 MMOL/L (3.5-5.1); Total Protein 8.6 G/DL (6.4-8.3)
[2017-05-09 21:29] LABS: Lactic Acid 1.3 MMOL/L (0.4-2.0)
[2017-05-09 21:38] LABS: Apearance,Urine Slightly Hazy (Clear); Bacteria,Urine Moderate /HPF (Few); Bilirubin,Urine Negative (Negative); Blood, Urine Small mg/dL (Negative); Glucose,Urine (UA) Negative (Negative); Hyaline Casts,Urine 7 /LPF (0-3); Ketones,Urine Negative (Negative); Mucus,Urine Occasional /LPF (Occasional); Nitrite,Urine Positive (Negative); Protein,Urine Negative; RBC,Urine <1 /HPF (0-4); Squamous Epithelial Cell,Urine Occasional /HPF (0-10); Urine Color Yellow (Yellow); Urine Urobilinogen < 2.0 EU/DL (0.2-1.0); WBC,Urine 17 /HPF (0-6)
[2017-05-09 21:40] LABS: Troponin I Only < 0.015 NG/ML (0.00-0.045)
[2017-05-09] MEDS ORDERED: ONDANSETRON 4 MG/2 ML VIAL IV PRN (23:25)
[2017-05-09] MEDS ORDERED: NITROGLYCERIN SL 0.4 MG TABLET SL PRN (23:25)
[2017-05-09] MEDS ORDERED: GLUCAGON 1 MG VIAL IM PRN (23:25)
[2017-05-09] MEDS ORDERED: DEXTROSE 50% 25 GM/50 ML VIAL IV PRN (23:25)
[2017-05-10] MEDS: SODIUM CHLORIDE 0.9% 1,000 ML IV SCH ×2 (02:53→22:35)
[2017-05-10 07:11] LABS: Basophils % 0.3 % (0.0-0.8); Hematocrit 33.7 VOL% (35.7-47.0); Immature Granulocytes % 0.3 %; Immature Granulocytes Absolute 0.02 #; Lymphocytes # 0.5 10*3/uL (1.4-4.0); Lymphocytes % 6.4 % (21.3-54.2); Mean Corpuscular HGB Conc 34.7 GM/DL (32-36); Mean Corpuscular Hemoglobin 29 PG (27-34); Mean Corpuscular Volume 84.5 FL (87-102); Mean Platelet Volume 10.1 FL (9.6-12.0); Monocytes # 0.7 10*3/uL (0.11-0.8); Monocytes % 9.7 % (1.7-12.7); Neutrophils # 6.1 10*3/uL (1.4-7.4); Neutrophils % 83.3 % (38.7-73.9); Platelet Count 342 T/CUMM (130-400); Red Blood Count 3.99 MC/CUMM (3.8-5.5); Red Cell Distribution Width 15.1 % (9.3-17.3); White Blood Count 7.4 T/CUMM (4-12)
[2017-05-10 07:13] LABS: Calcium 8.5 MG/DL (8.5-10.1); Osmolality,Calculated 286.4 MOS/KG (273-304)
[2017-05-10 07:15] LABS: Hemoglobin 11.7 GM/DL (12.0-16.0)
[2017-05-10] MEDS: INSULIN LISPRO 100 UNIT/ML SUBCUT SCH ×4 (08:35→22:33)
[2017-05-10] MEDS: amLODIPine 10 MG TABLET PO SCH (08:37)
[2017-05-10] MEDS: TICAGRELOR 90 MG TABLET PO SCH (08:37)
[2017-05-10] MEDS: TAMSULOSIN 0.4 MG CAPSULE PO SCH (08:37)
[2017-05-10] MEDS: PRAVASTATIN 20 MG TABLET PO SCH (08:37)
[2017-05-10] MEDS: PARoxetine 10 MG TABLET PO SCH (22:35)
[2017-05-11] MEDS: INSULIN LISPRO 100 UNIT/ML SUBCUT SCH ×4 (07:36→22:12)
[2017-05-11] MEDS: TICAGRELOR 90 MG TABLET PO SCH (08:00)
[2017-05-11] MEDS: PRAVASTATIN 20 MG TABLET PO SCH (08:00)
[2017-05-11] MEDS: TAMSULOSIN 0.4 MG CAPSULE PO SCH (08:00)
[2017-05-11] MEDS: amLODIPine 10 MG TABLET PO SCH (08:01)
[2017-05-11] MEDS: SODIUM CHLORIDE 0.9% 1,000 ML IV SCH ×2 (14:49→17:42)
[2017-05-11] MEDS ORDERED: LEVOFLOXACIN INJ 500 MG in PREMIX 1 EACH IV SCH (21:00)
[2017-05-11] MEDS: PARoxetine 10 MG TABLET PO SCH (22:14)
[2017-05-11] MEDS ORDERED: ALUMINUM/MAGNES/SIMETH MAX STR 30 ML UDCUP PO PRN (22:25)
[2017-05-12] MEDS: PANTOPRAZOLE 40 MG TABLET PO SCH ×2 (01:25→09:57)
[2017-05-12] MEDS: INSULIN LISPRO 100 UNIT/ML SUBCUT SCH ×4 (08:43→20:19)
[2017-05-12] MEDS: amLODIPine 10 MG TABLET PO SCH (09:57)
[2017-05-12] MEDS: TAMSULOSIN 0.4 MG CAPSULE PO SCH (09:57)
[2017-05-12] MEDS: PRAVASTATIN 20 MG TABLET PO SCH (09:57)
[2017-05-12] MEDS: TICAGRELOR 90 MG TABLET PO SCH (09:58)
[2017-05-12] MEDS ORDERED: TOBRAMYCIN INJ 80 MG in SODIUM CHLORIDE 0.9% 100 ML IV ONE (12:00)
[2017-05-12] MEDS: SODIUM CHLORIDE 0.9% 1,000 ML IV SCH (13:12)
[2017-05-12] MEDS: PARoxetine 10 MG TABLET PO SCH (20:20)
[2017-05-13 06:22] LABS: Basophils % 0.7 % (0.0-0.8); Eosinophils # 0.3 10*3/uL (0.0-0.87); Eosinophils % 5.4 % (0.00-10.9); Hematocrit 32.2 VOL% (35.7-47.0); Hemoglobin 10.8 GM/DL (12.0-16.0); Immature Granulocytes % 0.4 %; Immature Granulocytes Absolute 0.02 #; Lymphocytes # 1.9 10*3/uL (1.4-4.0); Lymphocytes % 33.2 % (21.3-54.2); Mean Corpuscular HGB Conc 33.5 GM/DL (32-36); Mean Corpuscular Hemoglobin 29 PG (27-34); Mean Corpuscular Volume 86.8 FL (87-102); Mean Platelet Volume 10.1 FL (9.6-12.0); Monocytes # 0.6 10*3/uL (0.11-0.8); Monocytes % 10.2 % (1.7-12.7); Neutrophils # 2.8 10*3/uL (1.4-7.4); Neutrophils % 50.1 % (38.7-73.9); Platelet Count 280 T/CUMM (130-400); Red Blood Count 3.71 MC/CUMM (3.8-5.5); White Blood Count 5.6 T/CUMM (4-12)
[2017-05-13 06:46] LABS: Calcium 7.8 MG/DL (8.5-10.1); Osmolality,Calculated 290.7 MOS/KG (273-304); Potassium 3.9 MMOL/L (3.5-5.1)
[2017-05-13] MEDS: INSULIN LISPRO 100 UNIT/ML SUBCUT SCH ×2 (07:40→12:00)
[2017-05-13] MEDS ORDERED: SODIUM CHLORIDE 0.9% 1,000 ML IV SCH (09:00)
[2017-05-13] MEDS: TAMSULOSIN 0.4 MG CAPSULE PO SCH (09:16)
[2017-05-13] MEDS: amLODIPine 10 MG TABLET PO SCH (09:16)
[2017-05-13] MEDS: PRAVASTATIN 20 MG TABLET PO SCH (09:16)
[2017-05-13] MEDS: TICAGRELOR 90 MG TABLET PO SCH (09:16)
[2017-05-13] MEDS: PANTOPRAZOLE 40 MG TABLET PO SCH (09:16)
[2017-05-13] MEDS: SODIUM CHLORIDE 0.9% 1,000 ML IV SCH (09:19)
[2017-05-13] MEDS ORDERED: TOBRAMYCIN INJ 80 MG in SODIUM CHLORIDE 0.9% 100 ML IV PRN (12:00)
[2017-05-13 19:59] VITALS: BP 139/62
== END 2017-05-13 17:40 | disposition home or self-care (01) | DRG 683 ==
LOC: N.ED 18:06 → SUATTDRO 23:25 → N.EDINP 23:25 → N.2E 05-10 00:22 → N.5E 05-10 00:27
PROVIDERS: ADMIT Internal Medicine Geriatric Medicine

== ENCOUNTER 2018-06-12 19:05 | Inpatient (IN) ==
[2018-06-12] MEDS ORDERED: FUROSEMIDE 100 MG/10 ML VIAL IV STA (19:26)
[2018-06-12] MEDS ORDERED: LABETALOL 20 MG/4 ML SYRINGE IV STA (19:26)
[2018-06-12] MEDS ORDERED: ALBUTEROL/IPRATROPIUM 3 ML NEB RESP TX STA (19:26)
[2018-06-12 19:44] LABS: Basophils # 0.1 10*3/uL (0.0-0.2); Basophils % 1.1 % (0.0-0.8); Eosinophils # 0.5 10*3/uL (0.0-0.87); Eosinophils % 4.6 % (0.00-10.9); Hematocrit 39.7 VOL% (35.7-47.0); Hemoglobin 12.8 GM/DL (12.0-16.0); Immature Granulocytes % 0.3 %; Immature Granulocytes Absolute 0.03 #; Lymphocytes # 3.5 10*3/uL (1.4-4.0); Lymphocytes % 30.6 % (21.3-54.2); Mean Corpuscular HGB Conc 32.2 GM/DL (32-36); Mean Corpuscular Hemoglobin 27 PG (27-34); Mean Platelet Volume 9.5 FL (9.6-12.0); Monocytes # 0.7 10*3/uL (0.11-0.8); Monocytes % 6.3 % (1.7-12.7); Neutrophils # 6.5 10*3/uL (1.4-7.4); Neutrophils % 57.1 % (38.7-73.9); Platelet Count 465 T/CUMM (130-400); Red Blood Count 4.67 MC/CUMM (3.8-5.5); Red Cell Distribution Width 16.3 % (9.3-17.3); White Blood Count 11.5 T/CUMM (4-12)
[2018-06-12 19:48] LABS: Apearance,Urine CLEAR (Clear); Bacteria,Urine Occasional /HPF (Few); Bilirubin,Urine Negative (Negative); Blood, Urine Small mg/dL (Negative); Glucose,Urine (UA) Negative (Negative); Ketones,Urine Negative (Negative); Nitrite,Urine Negative (Negative); Protein,Urine 30 MG/DL; RBC,Urine 2 /HPF (0-4); Squamous Epithelial Cell,Urine Occasional /HPF (0-10); Urine Color Colorless (Yellow); Urine Specific Gravity 1.005 (1.001-1.035); Urine Urobilinogen < 2.0 EU/DL (0.2-1.0)
[2018-06-12 20:11] LABS: Albumin 3.5 G/DL (3.4-5.0); Bilirubin,Total 0.7 MG/DL (0.2-1.0); Calcium 8.9 MG/DL (8.5-10.1); Osmolality,Calculated 286.4 MOS/KG (273-304); Total Protein 8.1 G/DL (6.4-8.3)
[2018-06-12] MEDS ORDERED: ONDANSETRON 4 MG/2 ML VIAL IV PRN (22:19)
[2018-06-12] MEDS ORDERED: MAGNESIUM SULF RIDER 2 GM in PREMIX 1 EACH IV PRN (22:19)
[2018-06-12] MEDS ORDERED: ACETAMINOPHEN 325 MG TABLET PO PRN (22:19)
[2018-06-12] MEDS ORDERED: MAGNESIUM SULF RIDER 4 GM in PREMIX 1 EACH IV PRN (22:19)
[2018-06-12] MEDS ORDERED: GLUCAGON 1 MG VIAL IM PRN (22:40)
[2018-06-12] MEDS ORDERED: DEXTROSE 50% 25 GM/50 ML VIAL IV PRN (22:40)
[2018-06-12] MEDS: ENOXAPARIN 30 MG/0.3 ML SYRINGE SUBCUT SCH (23:09)
[2018-06-12] MEDS: MEMANTINE 10 MG TABLET PO SCH (23:09)
[2018-06-13] MEDS: LEVOTHYROXINE 50 MCG TABLET PO SCH (06:31)
[2018-06-13 06:56] LABS: Basophils # 0.1 10*3/uL (0.0-0.2); Basophils % 1.3 % (0.0-0.8); Eosinophils # 0.3 10*3/uL (0.0-0.87); Eosinophils % 3.7 % (0.00-10.9); Hematocrit 33.2 VOL% (35.7-47.0); Hemoglobin 10.8 GM/DL (12.0-16.0); Immature Granulocytes % 0.1 %; Immature Granulocytes Absolute 0.01 #; Lymphocytes # 1.6 10*3/uL (1.4-4.0); Lymphocytes % 23.4 % (21.3-54.2); Mean Corpuscular HGB Conc 32.5 GM/DL (32-36); Mean Corpuscular Hemoglobin 28 PG (27-34); Mean Corpuscular Volume 84.5 FL (87-102); Mean Platelet Volume 9.7 FL (9.6-12.0); Monocytes # 0.7 10*3/uL (0.11-0.8); Neutrophils # 4.1 10*3/uL (1.4-7.4); Neutrophils % 61.5 % (38.7-73.9); Platelet Count 389 T/CUMM (130-400); Red Blood Count 3.93 MC/CUMM (3.8-5.5); Red Cell Distribution Width 15.9 % (9.3-17.3); White Blood Count 6.7 T/CUMM (4-12)
[2018-06-13 07:30] LABS: Albumin 2.8 G/DL (3.4-5.0); Bilirubin,Total 0.8 MG/DL (0.2-1.0); Calcium 8.3 MG/DL (8.5-10.1); Osmolality,Calculated 290.8 MOS/KG (273-304); Potassium 4.4 MMOL/L (3.5-5.1); Risk Ratio 4.26; Total Protein 6.2 G/DL (6.4-8.3); VLDL CHOLESTEROL 15.6 MG/DL
[2018-06-13] MEDS ORDERED: FUROSEMIDE 40 MG/4 ML VIAL IV SCH (08:00)
[2018-06-13] MEDS: INSULIN REGULAR 100 UNIT/ML SUBCUT SCH ×4 (08:11→21:17)
[2018-06-13] MEDS: ASPIRIN CHEW 81 MG TABLET PO SCH (08:12)
[2018-06-13] MEDS: PANTOPRAZOLE 40 MG TABLET PO SCH (08:12)
[2018-06-13] MEDS: MEMANTINE 10 MG TABLET PO SCH ×2 (08:12→21:16)
[2018-06-13] MEDS: SIMVASTATIN 10 MG TABLET PO SCH (08:12)
[2018-06-13] MEDS: amLODIPine 10 MG TABLET PO SCH (08:16)
[2018-06-13] MEDS: TAMSULOSIN 0.4 MG CAPSULE PO SCH (08:16)
[2018-06-13] MEDS: DONEPEZIL 10 MG TABLET PO SCH (08:16)
[2018-06-13] MEDS: POTASSIUM CHLORIDE 10 MEQ TABLET PO SCH (08:17)
[2018-06-13] MEDS: TICAGRELOR 90 MG TABLET PO SCH (08:17)
[2018-06-13] MEDS ORDERED: FUROSEMIDE 40 MG/4 ML VIAL IV ONE (10:28)
[2018-06-13] MEDS: ISOSORBIDE MONONITRATE 30 MG TABLET PO SCH (12:32)
[2018-06-13] MEDS: CARVEDILOL 6.25 MG TABLET PO SCH ×2 (12:32→16:54)
[2018-06-13] MEDS: hydrALAZINE 10 MG TABLET PO SCH ×2 (16:53→21:16)
[2018-06-13] MEDS: FUROSEMIDE 40 MG/4 ML VIAL IV SCH (16:53)
[2018-06-13] MEDS: ENOXAPARIN 30 MG/0.3 ML SYRINGE SUBCUT SCH (22:11)
[2018-06-13] MEDS ORDERED: METHOCARBAMOL 500 MG TABLET PO ONE (22:30)
[2018-06-14] MEDS ORDERED: diphenhydrAMINE CAP 25 MG CAPSULE PO ONE (02:41)
[2018-06-14 06:50] LABS: Calcium 8.4 MG/DL (8.5-10.1); Osmolality,Calculated 286.3 MOS/KG (273-304); Potassium 3.6 MMOL/L (3.5-5.1)
[2018-06-14] MEDS: LEVOTHYROXINE 50 MCG TABLET PO SCH (07:31)
[2018-06-14] MEDS: FUROSEMIDE 40 MG/4 ML VIAL IV SCH ×2 (09:47→16:59)
[2018-06-14] MEDS: TICAGRELOR 90 MG TABLET PO SCH (09:48)
[2018-06-14] MEDS: ISOSORBIDE MONONITRATE 30 MG TABLET PO SCH (09:48)
[2018-06-14] MEDS: hydrALAZINE 10 MG TABLET PO SCH ×3 (09:48→21:05)
[2018-06-14] MEDS: TAMSULOSIN 0.4 MG CAPSULE PO SCH (09:48)
[2018-06-14] MEDS: POTASSIUM CHLORIDE 10 MEQ TABLET PO SCH (09:48)
[2018-06-14] MEDS: CARVEDILOL 6.25 MG TABLET PO SCH ×2 (09:48→17:57)
[2018-06-14] MEDS: PANTOPRAZOLE 40 MG TABLET PO SCH (09:48)
[2018-06-14] MEDS: ASPIRIN CHEW 81 MG TABLET PO SCH (09:48)
[2018-06-14] MEDS: MEMANTINE 10 MG TABLET PO SCH ×2 (09:48→21:05)
[2018-06-14] MEDS: SIMVASTATIN 10 MG TABLET PO SCH (09:48)
[2018-06-14] MEDS: amLODIPine 10 MG TABLET PO SCH (09:48)
[2018-06-14] MEDS: DONEPEZIL 10 MG TABLET PO SCH (09:48)
[2018-06-14] MEDS: INSULIN REGULAR 100 UNIT/ML SUBCUT SCH ×4 (09:49→21:05)
[2018-06-14] MEDS: ENOXAPARIN 30 MG/0.3 ML SYRINGE SUBCUT SCH (22:47)
[2018-06-15] MEDS ORDERED: SODIUM CHLORIDE 0.9% 250 ML IV ONE (00:52)
[2018-06-15] MEDS ORDERED: ATROPINE 1 MG/10 ML SYRINGE IV PRN (00:53)
[2018-06-15] MEDS ORDERED: POTASSIUM CHLORIDE 20 MEQ TABLET PO ONE (01:15)
[2018-06-15] MEDS ORDERED: METHOCARBAMOL 500 MG TABLET PO ONE (01:16)
[2018-06-15] MEDS: LEVOTHYROXINE 50 MCG TABLET PO SCH (06:37)
[2018-06-15 06:42] LABS: Basophils # 0.1 10*3/uL (0.0-0.2); Basophils % 1.2 % (0.0-0.8); Eosinophils # 0.3 10*3/uL (0.0-0.87); Eosinophils % 5.4 % (0.00-10.9); Hematocrit 32.4 VOL% (35.7-47.0); Hemoglobin 10.5 GM/DL (12.0-16.0); Immature Granulocytes % 0.3 %; Immature Granulocytes Absolute 0.02 #; Lymphocytes # 1.5 10*3/uL (1.4-4.0); Lymphocytes % 25.5 % (21.3-54.2); Mean Corpuscular HGB Conc 32.4 GM/DL (32-36); Mean Corpuscular Hemoglobin 28 PG (27-34); Mean Platelet Volume 9.7 FL (9.6-12.0); Monocytes # 0.8 10*3/uL (0.11-0.8); Monocytes % 12.8 % (1.7-12.7); Neutrophils # 3.3 10*3/uL (1.4-7.4); Neutrophils % 54.8 % (38.7-73.9); Platelet Count 412 T/CUMM (130-400); Red Blood Count 3.81 MC/CUMM (3.8-5.5); Red Cell Distribution Width 15.9 % (9.3-17.3)
[2018-06-15 07:15] LABS: Calcium 8.1 MG/DL (8.5-10.1); Osmolality,Calculated 284.4 MOS/KG (273-304); Potassium 4.5 MMOL/L (3.5-5.1)
[2018-06-15] MEDS: INSULIN REGULAR 100 UNIT/ML SUBCUT SCH ×4 (08:54→20:17)
[2018-06-15] MEDS: amLODIPine 10 MG TABLET PO SCH (08:58)
[2018-06-15] MEDS: MEMANTINE 10 MG TABLET PO SCH ×2 (08:58→22:18)
[2018-06-15] MEDS: FUROSEMIDE 40 MG/4 ML VIAL IV SCH ×2 (08:58→16:14)
[2018-06-15] MEDS: DONEPEZIL 10 MG TABLET PO SCH (08:58)
[2018-06-15] MEDS: TICAGRELOR 90 MG TABLET PO SCH (08:58)
[2018-06-15] MEDS: TAMSULOSIN 0.4 MG CAPSULE PO SCH (08:58)
[2018-06-15] MEDS: SIMVASTATIN 10 MG TABLET PO SCH (08:58)
[2018-06-15] MEDS: PANTOPRAZOLE 40 MG TABLET PO SCH (08:59)
[2018-06-15] MEDS: ASPIRIN CHEW 81 MG TABLET PO SCH (08:59)
[2018-06-15] MEDS: POTASSIUM CHLORIDE 10 MEQ TABLET PO SCH (08:59)
[2018-06-15] MEDS: CARVEDILOL 6.25 MG TABLET PO SCH ×2 (09:07→16:15)
[2018-06-15] MEDS: ISOSORBIDE MONONITRATE 30 MG TABLET PO SCH (09:08)
[2018-06-15] MEDS: hydrALAZINE 10 MG TABLET PO SCH ×3 (09:08→22:18)
[2018-06-15] MEDS: ENOXAPARIN 30 MG/0.3 ML SYRINGE SUBCUT SCH (22:17)
[2018-06-16 04:26] LABS: Basophils # 0.1 10*3/uL (0.0-0.2); Basophils % 0.9 % (0.0-0.8); Eosinophils # 0.5 10*3/uL (0.0-0.87); Eosinophils % 7.7 % (0.00-10.9); Hematocrit 34.2 VOL% (35.7-47.0); Hemoglobin 11.1 GM/DL (12.0-16.0); Immature Granulocytes % 0.3 %; Immature Granulocytes Absolute 0.02 #; Lymphocytes # 1.7 10*3/uL (1.4-4.0); Lymphocytes % 23.7 % (21.3-54.2); Mean Corpuscular HGB Conc 32.5 GM/DL (32-36); Mean Corpuscular Hemoglobin 27 PG (27-34); Mean Corpuscular Volume 84.4 FL (87-102); Mean Platelet Volume 9.6 FL (9.6-12.0); Monocytes % 13.7 % (1.7-12.7); Neutrophils # 3.8 10*3/uL (1.4-7.4); Neutrophils % 53.7 % (38.7-73.9); Platelet Count 433 T/CUMM (130-400); Red Blood Count 4.05 MC/CUMM (3.8-5.5); Red Cell Distribution Width 15.7 % (9.3-17.3)
[2018-06-16 04:46] LABS: Calcium 8.4 MG/DL (8.5-10.1); Osmolality,Calculated 287.4 MOS/KG (273-304); Potassium 4.2 MMOL/L (3.5-5.1)
[2018-06-16] MEDS: LEVOTHYROXINE 50 MCG TABLET PO SCH (07:39)
[2018-06-16] MEDS: INSULIN REGULAR 100 UNIT/ML SUBCUT SCH ×3 (08:20→12:00)
[2018-06-16] MEDS: DONEPEZIL 10 MG TABLET PO SCH (08:46)
[2018-06-16] MEDS: CARVEDILOL 6.25 MG TABLET PO SCH (08:46)
[2018-06-16] MEDS: POTASSIUM CHLORIDE 10 MEQ TABLET PO SCH (08:46)
[2018-06-16] MEDS: ASPIRIN CHEW 81 MG TABLET PO SCH (08:46)
[2018-06-16] MEDS: PANTOPRAZOLE 40 MG TABLET PO SCH (08:46)
[2018-06-16] MEDS: SIMVASTATIN 10 MG TABLET PO SCH (08:46)
[2018-06-16] MEDS: amLODIPine 10 MG TABLET PO SCH (08:47)
[2018-06-16] MEDS: TICAGRELOR 90 MG TABLET PO SCH (08:47)
[2018-06-16] MEDS: MEMANTINE 10 MG TABLET PO SCH (08:47)
[2018-06-16] MEDS: hydrALAZINE 10 MG TABLET PO SCH (08:48)
[2018-06-16] MEDS: TAMSULOSIN 0.4 MG CAPSULE PO SCH (08:48)
[2018-06-16] MEDS: ISOSORBIDE MONONITRATE 30 MG TABLET PO SCH (08:48)
[2018-06-16] MEDS: FUROSEMIDE 40 MG/4 ML VIAL IV SCH (08:48)
[2018-06-16 12:15] VITALS: BP 113/61
[2018-06-16] MEDS ORDERED: FUROSEMIDE 40 MG TABLET PO SCH (16:00)
== END 2018-06-16 13:12 | disposition home health service (06) | DRG 291 ==
LOC: EDUNIT# → EDBD → N.ED 19:05 → SUATTDRO 21:54 → N.EDINP 21:54 → N.2E 22:25
PROVIDERS: ADMIT Internal Medicine; ATTEND Internal Medicine

== ENCOUNTER 2018-10-13 15:27 | Inpatient (IN) ==
[2018-10-13] MEDS ORDERED: SODIUM CHLORIDE 0.9% 500 ML IV STA (16:14)
[2018-10-13 17:21] LABS: Basophils # 0.1 10*3/uL (0.0-0.2); Eosinophils # 0.2 10*3/uL (0.0-0.87); Eosinophils % 1.8 % (0.00-10.9); Hematocrit 36.8 VOL% (35.7-47.0); Hemoglobin 11.8 GM/DL (12.0-16.0); Immature Granulocytes % 0.4 %; Immature Granulocytes Absolute 0.03 #; Lymphocytes # 1.7 10*3/uL (1.4-4.0); Lymphocytes % 20.7 % (21.3-54.2); Mean Corpuscular HGB Conc 32.1 GM/DL (32-36); Mean Corpuscular Volume 84.4 FL (87-102); Mean Platelet Volume 10.1 FL (9.6-12.0); Monocytes % 9.3 % (1.7-12.7); Neutrophils % 66.8 % (38.7-73.9); Platelet Count 365 T/CUMM (130-400); Red Blood Count 4.36 MC/CUMM (3.8-5.5); Red Cell Distribution Width 17.7 % (9.3-17.3); White Blood Count 8.3 T/CUMM (4-12)
[2018-10-13 17:30] LABS: INR 1.1; PT Patient Result 12.4 SECS
[2018-10-13 17:49] LABS: Alanine Aminotransferase 54 U/L (13-56); Albumin 3.2 G/DL (3.4-5.0); Alkaline Phosphatase 94 U/L (45-117); Aspartate Amino Transferase 42 U/L (0-37); Blood Urea Nitrogen 50 MG/DL (7-18); Calcium 8.3 MG/DL (8.5-10.1); Free T4 (Free Thyroxine) 1.36 NG/DL (0.76-1.46); Glucose 116 MG/DL (74-106); Osmolality,Calculated 301.7 MOS/KG (273-304); Troponin I 0.022 NG/ML (0.00-0.045)
[2018-10-13] MEDS ORDERED: MAGNESIUM SULF RIDER 4 GM in PREMIX 1 EACH IV PRN (18:32)
[2018-10-13] MEDS ORDERED: MAGNESIUM SULF RIDER 2 GM in PREMIX 1 EACH IV PRN (18:32)
[2018-10-13 18:48] LABS: Amorphous Crystals,Urine Occasional /HPF (Few); Apearance,Urine Slightly Hazy (Clear); Bilirubin,Urine Negative (Negative); Blood, Urine Negative (Negative); Glucose,Urine (UA) Negative (Negative); Ketones,Urine Negative (Negative); Mucus,Urine Occasional /LPF (Occasional); Nitrite,Urine Negative (Negative); Protein,Urine 100 MG/DL; RBC,Urine 2 /HPF (0-4); Squamous Epithelial Cell,Urine Occasional /HPF (0-10); Urine Color Yellow (Yellow); Urine Specific Gravity 1.012 (1.001-1.035); Urine Urobilinogen < 2.0 EU/DL (0.2-1.0); WBC,Urine 2 /HPF (0-6)
[2018-10-13] MEDS: ENOXAPARIN 30 MG/0.3 ML SYRINGE SUBCUT SCH (21:59)
[2018-10-13] MEDS: ONDANSETRON 4 MG/2 ML VIAL IV PRN (21:59)
[2018-10-14] MEDS ORDERED: ZIPRASIDONE 20 MG/1 ML VIAL IM PRN (03:35)
[2018-10-14] MEDS: ONDANSETRON 4 MG/2 ML VIAL IV PRN (05:00)
[2018-10-14 06:44] LABS: Basophils # 0.1 10*3/uL (0.0-0.2); Eosinophils # 0.1 10*3/uL (0.0-0.87); Eosinophils % 1.1 % (0.00-10.9); Hematocrit 36.5 VOL% (35.7-47.0); Hemoglobin 11.8 GM/DL (12.0-16.0); Immature Granulocytes % 0.5 %; Immature Granulocytes Absolute 0.06 #; Lymphocytes % 17.4 % (21.3-54.2); Mean Corpuscular HGB Conc 32.3 GM/DL (32-36); Mean Corpuscular Volume 85.3 FL (87-102); Mean Platelet Volume 10.2 FL (9.6-12.0); Monocytes % 8.5 % (1.7-12.7); Neutrophils % 71.5 % (38.7-73.9); Platelet Count 346 T/CUMM (130-400); Red Blood Count 4.28 MC/CUMM (3.8-5.5); Red Cell Distribution Width 18.2 % (9.3-17.3); White Blood Count 11.4 T/CUMM (4-12)
[2018-10-14 07:06] LABS: Bilirubin,Total 1.5 MG/DL (0.2-1.0); Calcium 8.4 MG/DL (8.5-10.1); Osmolality,Calculated 303.7 MOS/KG (273-304); Total Protein 6.6 G/DL (6.4-8.3)
[2018-10-14] MEDS: PANTOPRAZOLE 40 MG TABLET PO SCH (08:41)
[2018-10-14] MEDS: FUROSEMIDE 40 MG/4 ML VIAL IV SCH ×2 (08:41→15:37)
[2018-10-14] MEDS: MEGESTROL 400 MG/10 ML UDCUP PO SCH (10:22)
[2018-10-14] MEDS: TICAGRELOR 90 MG TABLET PO SCH (10:22)
[2018-10-14] MEDS: TAMSULOSIN 0.4 MG CAPSULE PO SCH (10:22)
[2018-10-14] MEDS: SIMVASTATIN 10 MG TABLET PO SCH (10:22)
[2018-10-14] MEDS: LEVOTHYROXINE 50 MCG TABLET PO SCH (10:22)
[2018-10-14] MEDS: amLODIPine 10 MG TABLET PO SCH (10:22)
[2018-10-14] MEDS: MEMANTINE 10 MG TABLET PO SCH ×2 (10:22→21:12)
[2018-10-14] MEDS: POTASSIUM CHLORIDE 10 MEQ TABLET PO SCH (10:25)
[2018-10-14] MEDS: ALBUTEROL/IPRATROPIUM 3 ML NEB RESP TX SCH ×2 (15:39→19:22)
[2018-10-14] MEDS: ENOXAPARIN 30 MG/0.3 ML SYRINGE SUBCUT SCH (21:12)
[2018-10-15] MEDS: ALBUTEROL/IPRATROPIUM 3 ML NEB RESP TX SCH ×4 (00:52→19:52)
[2018-10-15 05:24] LABS: Basophils # 0.1 10*3/uL (0.0-0.2); Basophils % 0.9 % (0.0-0.8); Eosinophils % 0.3 % (0.00-10.9); Hematocrit 32.8 VOL% (35.7-47.0); Hemoglobin 10.7 GM/DL (12.0-16.0); Immature Granulocytes % 0.3 %; Immature Granulocytes Absolute 0.02 #; Lymphocytes # 1.8 10*3/uL (1.4-4.0); Lymphocytes % 23.7 % (21.3-54.2); Mean Corpuscular HGB Conc 32.6 GM/DL (32-36); Mean Corpuscular Volume 83.2 FL (87-102); Mean Platelet Volume 9.8 FL (9.6-12.0); Monocytes % 11.9 % (1.7-12.7); Neutrophils % 62.9 % (38.7-73.9); Platelet Count 327 T/CUMM (130-400); Red Blood Count 3.94 MC/CUMM (3.8-5.5); Red Cell Distribution Width 17.5 % (9.3-17.3); White Blood Count 7.7 T/CUMM (4-12)
[2018-10-15 05:43] LABS: Calcium 8.3 MG/DL (8.5-10.1); Osmolality,Calculated 302.6 MOS/KG (273-304); Risk Ratio 5.97; VLDL CHOLESTEROL 16.4 MG/DL
[2018-10-15] MEDS: LEVOTHYROXINE 50 MCG TABLET PO SCH (06:08)
[2018-10-15] MEDS ORDERED: POTASSIUM CHLORIDE 20 MEQ TABLET PO ONE (06:52)
[2018-10-15] MEDS: PANTOPRAZOLE 40 MG TABLET PO SCH (08:55)
[2018-10-15] MEDS: TAMSULOSIN 0.4 MG CAPSULE PO SCH (08:55)
[2018-10-15] MEDS: FUROSEMIDE 40 MG/4 ML VIAL IV SCH ×2 (08:55→16:52)
[2018-10-15] MEDS: MEMANTINE 10 MG TABLET PO SCH ×2 (08:56→21:55)
[2018-10-15] MEDS: TICAGRELOR 90 MG TABLET PO SCH (08:56)
[2018-10-15] MEDS: MEGESTROL 400 MG/10 ML UDCUP PO SCH ×2 (08:56→21:54)
[2018-10-15] MEDS: amLODIPine 10 MG TABLET PO SCH (08:56)
[2018-10-15] MEDS: SIMVASTATIN 10 MG TABLET PO SCH (08:56)
[2018-10-15] MEDS ORDERED: MIRTAZAPINE 15 MG TABLET PO SCH (21:00)
[2018-10-15] MEDS: ENOXAPARIN 30 MG/0.3 ML SYRINGE SUBCUT SCH (21:54)
[2018-10-16] MEDS: ALBUTEROL/IPRATROPIUM 3 ML NEB RESP TX SCH ×3 (00:35→13:22)
[2018-10-16 08:35] LABS: Calcium 8.4 MG/DL (8.5-10.1); Osmolality,Calculated 300.6 MOS/KG (273-304)
[2018-10-16] MEDS: SIMVASTATIN 10 MG TABLET PO SCH (09:04)
[2018-10-16] MEDS: MEMANTINE 10 MG TABLET PO SCH (09:04)
[2018-10-16] MEDS: LEVOTHYROXINE 50 MCG TABLET PO SCH (09:04)
[2018-10-16] MEDS: TAMSULOSIN 0.4 MG CAPSULE PO SCH (09:04)
[2018-10-16] MEDS: POTASSIUM CHLORIDE 10 MEQ TABLET PO SCH (09:05)
[2018-10-16] MEDS: TICAGRELOR 90 MG TABLET PO SCH (09:06)
[2018-10-16] MEDS: PANTOPRAZOLE 40 MG TABLET PO SCH (09:06)
[2018-10-16] MEDS: amLODIPine 10 MG TABLET PO SCH (09:06)
[2018-10-16] MEDS: MEGESTROL 400 MG/10 ML UDCUP PO SCH (09:07)
[2018-10-16] MEDS: FUROSEMIDE 40 MG/4 ML VIAL IV SCH (09:07)
[2018-10-16 12:07] VITALS: BP 113/63
[2018-10-17] MEDS ORDERED: SIMVASTATIN 10 MG TABLET PO SCH (21:00)
== END 2018-10-16 15:54 | disposition home or self-care (01) | DRG 291 ==
LOC: N.ED 15:27 → N.EDINP 18:32 → SUATTDRO 18:32 → N.TELEN 19:35
PROVIDERS: ADMIT Internal Medicine; ATTEND Internal Medicine Nephrology

== ENCOUNTER 2019-02-16 14:15 | Inpatient (IN) ==
[2019-02-16 15:26] LABS: Basophils # 0.1 10*3/uL (0.0-0.2); Basophils % 1.3 % (0.0-0.8); Eosinophils # 0.2 10*3/uL (0.0-0.87); Eosinophils % 2.4 % (0.00-10.9); Hematocrit 33.7 VOL% (35.7-47.0); Hemoglobin 10.3 GM/DL (12.0-16.0); Immature Granulocytes % 0.3 %; Immature Granulocytes Absolute 0.02 #; Lymphocytes # 1.8 10*3/uL (1.4-4.0); Lymphocytes % 22.2 % (21.3-54.2); Mean Corpuscular HGB Conc 30.6 GM/DL (32-36); Mean Corpuscular Volume 80.2 FL (87-102); Mean Platelet Volume 9.9 FL (9.6-12.0); Monocytes % 10.2 % (1.7-12.7); Neutrophils % 63.6 % (38.7-73.9); Platelet Count 437 T/CUMM (130-400); Red Cell Distribution Width 18.6 % (9.3-17.3); White Blood Count 7.9 T/CUMM (4-12)
[2019-02-16 15:29] LABS: Apearance,Urine Slightly Hazy (Clear); Bacteria,Urine Few /HPF (Few); Bilirubin,Urine Negative (Negative); Blood, Urine Small mg/dL (Negative); Glucose,Urine (UA) Negative (Negative); Hyaline Casts,Urine 6 /LPF (0-3); Ketones,Urine Negative (Negative); Mucus,Urine Occasional /LPF (Occasional); Nitrite,Urine Negative (Negative); Protein,Urine 30 MG/DL; Squamous Epithelial Cell,Urine Occasional /HPF (0-10); Urine Color Yellow (Yellow); Urine Specific Gravity 1.011 (1.001-1.035); Urine Urobilinogen < 2.0 EU/DL (0.2-1.0); WBC,Urine 3 /HPF (0-6)
[2019-02-16 15:49] LABS: Albumin 2.7 G/DL (3.4-5.0); Bilirubin,Total 0.8 MG/DL (0.2-1.0); Calcium 8.9 MG/DL (8.5-10.1); Osmolality,Calculated 313.6 MOS/KG (273-304); Thyroid Stimulating Hormone 4.5 uIU/ml (0.358-3.74); Total Protein 7.1 G/DL (6.4-8.3)
[2019-02-16] MEDS ORDERED: ACETAMINOPHEN 325 MG TABLET PO PRN (16:41)
[2019-02-16] MEDS ORDERED: ONDANSETRON 4 MG/2 ML VIAL IV PRN (16:41)
[2019-02-16] MEDS ORDERED: ONDANSETRON 4 MG TABLET PO PRN ×3 (16:43→17:30)
[2019-02-16] MEDS: SODIUM CHLORIDE 0.45% 1,000 ML IV SCH (17:30)
[2019-02-16] MEDS ORDERED: INFLUENZA VIRUS VACCINE 0.5 ML SYRINGE IM ONE (17:38)
[2019-02-16] MEDS: ENOXAPARIN 30 MG/0.3 ML SYRINGE SUBCUT SCH (17:42)
[2019-02-16] MEDS: DONEPEZIL 5 MG TABLET PO SCH ×2 (21:36→21:46)
[2019-02-16] MEDS: ATORVASTATIN 80 MG TABLET PO SCH ×2 (21:36→21:46)
[2019-02-16] MEDS: METOPROLOL SUCCINATE XL 25 MG TABLET PO SCH ×2 (21:36→21:46)
[2019-02-16] MEDS: clonazePAM 0.5 MG TABLET PO SCH ×2 (21:36→21:46)
[2019-02-16] MEDS: FUROSEMIDE 20 MG TABLET PO SCH ×2 (21:36→21:46)
[2019-02-16] MEDS: MIRTAZAPINE 15 MG TABLET PO SCH ×2 (21:36→21:46)
[2019-02-17] MEDS: LEVOTHYROXINE 50 MCG TABLET PO SCH (06:41)
[2019-02-17 07:14] LABS: Calcium 8.2 MG/DL (8.5-10.1); Osmolality,Calculated 304.3 MOS/KG (273-304)
[2019-02-17 07:28] LABS: Basophils # 0.1 10*3/uL (0.0-0.2); Basophils % 0.9 % (0.0-0.8); Eosinophils # 0.2 10*3/uL (0.0-0.87); Eosinophils % 2.3 % (0.00-10.9); Hematocrit 35.2 VOL% (35.7-47.0); Hemoglobin 10.6 GM/DL (12.0-16.0); Immature Granulocytes % 0.4 %; Immature Granulocytes Absolute 0.03 #; Lymphocytes # 1.3 10*3/uL (1.4-4.0); Lymphocytes % 17.1 % (21.3-54.2); Mean Corpuscular HGB Conc 30.1 GM/DL (32-36); Mean Corpuscular Volume 83.2 FL (87-102); Mean Platelet Volume 10.8 FL (9.6-12.0); Monocytes % 10.3 % (1.7-12.7); Platelet Count 363 T/CUMM (130-400); Red Blood Count 4.23 MC/CUMM (3.8-5.5); Red Cell Distribution Width 19.1 % (9.3-17.3); White Blood Count 7.7 T/CUMM (4-12)
[2019-02-17] MEDS: PANTOPRAZOLE 40 MG TABLET PO SCH (08:32)
[2019-02-17] MEDS: MEMANTINE 10 MG TABLET PO SCH (08:32)
[2019-02-17] MEDS: MEGESTROL 400 MG/10 ML UDCUP PO SCH (08:32)
[2019-02-17] MEDS: FUROSEMIDE 20 MG TABLET PO SCH (08:32)
[2019-02-17] MEDS: METOPROLOL SUCCINATE XL 25 MG TABLET PO SCH ×2 (08:32→21:03)
[2019-02-17] MEDS: TAMSULOSIN 0.4 MG CAPSULE PO SCH (08:33)
[2019-02-17] MEDS: ISOSORBIDE MONONITRATE 30 MG TABLET PO SCH (08:33)
[2019-02-17] MEDS: SODIUM CHLORIDE 0.45% 1,000 ML IV SCH (18:04)
[2019-02-17] MEDS: ENOXAPARIN 30 MG/0.3 ML SYRINGE SUBCUT SCH (18:05)
[2019-02-17] MEDS: ATORVASTATIN 80 MG TABLET PO SCH (21:03)
[2019-02-17] MEDS: MIRTAZAPINE 15 MG TABLET PO SCH (21:03)
[2019-02-17] MEDS: clonazePAM 0.5 MG TABLET PO SCH (21:03)
[2019-02-17] MEDS: DONEPEZIL 5 MG TABLET PO SCH (21:03)
[2019-02-18] MEDS: LEVOTHYROXINE 50 MCG TABLET PO SCH (06:28)
[2019-02-18 07:22] LABS: Basophils # 0.1 10*3/uL (0.0-0.2); Basophils % 0.7 % (0.0-0.8); Eosinophils # 0.1 10*3/uL (0.0-0.87); Eosinophils % 1.4 % (0.00-10.9); Hematocrit 33.6 VOL% (35.7-47.0); Hemoglobin 10.4 GM/DL (12.0-16.0); Immature Granulocytes % 0.6 %; Immature Granulocytes Absolute 0.06 #; Lymphocytes # 1.5 10*3/uL (1.4-4.0); Lymphocytes % 16.3 % (21.3-54.2); Mean Platelet Volume 10.6 FL (9.6-12.0); Monocytes % 9.6 % (1.7-12.7); NRBC # 0.02 10*3/uL; Neutrophils % 71.4 % (38.7-73.9); Platelet Count 400 T/CUMM (130-400); Red Cell Distribution Width 18.7 % (9.3-17.3); White Blood Count 9.5 T/CUMM (4-12)
[2019-02-18 07:43] LABS: Calcium 8.6 MG/DL (8.5-10.1); Osmolality,Calculated 311.9 MOS/KG (273-304)
[2019-02-18] MEDS: TAMSULOSIN 0.4 MG CAPSULE PO SCH (10:22)
[2019-02-18] MEDS: ISOSORBIDE MONONITRATE 30 MG TABLET PO SCH (10:22)
[2019-02-18] MEDS: MEGESTROL 400 MG/10 ML UDCUP PO SCH (10:22)
[2019-02-18] MEDS: PANTOPRAZOLE 40 MG TABLET PO SCH (10:23)
[2019-02-18] MEDS: MEMANTINE 10 MG TABLET PO SCH (10:23)
[2019-02-18] MEDS: METOPROLOL SUCCINATE XL 25 MG TABLET PO SCH ×2 (10:23→20:24)
[2019-02-18] MEDS ORDERED: TUBERCULIN SKIN TEST 0.1 ML SYRINGE INTRADERM ONE (11:15)
[2019-02-18] MEDS: ENOXAPARIN 30 MG/0.3 ML SYRINGE SUBCUT SCH (17:50)
[2019-02-18] MEDS: DEXTROSE 5% 1,000 ML IV SCH (17:51)
[2019-02-18] MEDS: clonazePAM 0.5 MG TABLET PO SCH (20:24)
[2019-02-18] MEDS: DONEPEZIL 5 MG TABLET PO SCH (20:24)
[2019-02-18] MEDS: MIRTAZAPINE 15 MG TABLET PO SCH (20:24)
[2019-02-18] MEDS: ATORVASTATIN 80 MG TABLET PO SCH (20:24)
[2019-02-19] MEDS: LEVOTHYROXINE 50 MCG TABLET PO SCH (06:20)
[2019-02-19] MEDS: MEGESTROL 400 MG/10 ML UDCUP PO SCH (09:02)
[2019-02-19] MEDS: PANTOPRAZOLE 40 MG TABLET PO SCH (09:02)
[2019-02-19] MEDS: TAMSULOSIN 0.4 MG CAPSULE PO SCH (09:02)
[2019-02-19] MEDS: ISOSORBIDE MONONITRATE 30 MG TABLET PO SCH (09:02)
[2019-02-19] MEDS: MEMANTINE 10 MG TABLET PO SCH (09:02)
[2019-02-19] MEDS: METOPROLOL SUCCINATE XL 25 MG TABLET PO SCH (09:02)
[2019-02-19] MEDS: DEXTROSE 5% 1,000 ML IV SCH (10:24)
[2019-02-19 11:59] VITALS: BP 122/70
== END 2019-02-19 11:53 | DRG 641 ==
LOC: EDUNIT# → EDBD → N.ED 14:15 → SUATTDRO 16:04 → N.EDINP 16:04 → N.5E 16:33
PROVIDERS: ADMIT Hospitalist

== ENCOUNTER 2019-03-06 15:58 | Inpatient (IN) ==
[2019-03-06] MEDS ORDERED: LACTATED RINGERS 500 ML IV ONE ×2 (16:25→18:14)
[2019-03-06 17:07] LABS: Basophils % 0.1 % (0.0-0.8); Eosinophils % 0.1 % (0.00-10.9); Hematocrit 27.4 VOL% (35.7-47.0); Hemoglobin 9.5 GM/DL (12.0-16.0); Immature Granulocytes % 1.2 %; Immature Granulocytes Absolute 0.23 #; Lymphocytes # 0.5 10*3/uL (1.4-4.0); Lymphocytes % 2.4 % (21.3-54.2); Mean Corpuscular HGB Conc 34.7 GM/DL (32-36); Mean Corpuscular Volume 68.7 FL (87-102); Mean Platelet Volume 10.9 FL (9.6-12.0); Monocytes % 4.1 % (1.7-12.7); NRBC # 0.02 10*3/uL; Neutrophils % 92.1 % (38.7-73.9); Platelet Count 179 T/CUMM (130-400); Red Blood Count 3.99 MC/CUMM (3.8-5.5); Red Cell Distribution Width 18.8 % (9.3-17.3); White Blood Count 18.5 T/CUMM (4-12)
[2019-03-06 17:31] LABS: Albumin 1.5 G/DL (3.4-5.0); Bilirubin,Total 1.2 MG/DL (0.2-1.0); Calcium 7.2 MG/DL (8.5-10.1); Osmolality,Calculated 326.3 MOS/KG (273-304); Total Protein 5.3 G/DL (6.4-8.3)
[2019-03-06 17:33] LABS: Lymphocytes 9 % (20-55); Segmented Neutrophils 90 % (50-85); Total Cells Counted 100
[2019-03-06 17:39] LABS: Target Cells 2+
[2019-03-06 17:40] LABS: Microcytosis 3+; Schistocytes 1+
[2019-03-06 17:41] LABS: Polychromasia Few
[2019-03-06 17:42] LABS: Burr Cells 4+
[2019-03-06 17:43] LABS: Acanthocytes 1+; Ovalocytes 2+
[2019-03-06 17:44] LABS: Anisocytosis 3+; Platelet Estimate Adequate; Poikilocytosis 3+
[2019-03-06 17:48] LABS: Bacteria,Urine Many /HPF (Few); Bilirubin,Urine Negative (Negative); Blood, Urine Small mg/dL (Negative); Glucose,Urine (UA) Negative (Negative); Ketones,Urine Negative (Negative); Mucus,Urine Occasional /LPF (Occasional); Nitrite,Urine Negative (Negative); Protein,Urine 100 MG/DL; RBC,Urine 1 /HPF (0-4); Squamous Epithelial Cell,Urine Moderate /HPF (0-10); Transitional Epi Cells,Urine Few /HPF (<1); Urine Specific Gravity 1.016 (1.001-1.035)
[2019-03-06 17:49] LABS: Apearance,Urine Turbid (Clear); Urine Color Brown (Yellow); WBC,Urine TNTC /HPF (0-6)
[2019-03-06] MEDS ORDERED: cefTRIAXone 250 MG VIAL IV STA (17:56)
[2019-03-06] MEDS ORDERED: SODIUM CHLORIDE 0.9% 100 ML IV ONE (18:02)
[2019-03-06] MEDS ORDERED: cefTRIAXone 1,000 MG VIAL ONE (18:02)
[2019-03-06 18:22] LABS: Barbiturates Screen,Urine Negative (Negative); Benzodiazepines Screen,Urine Negative (Negative); Cannabinoid Screen,Urine Negative (Negative); Opiate Screen,Urine Negative (Negative); Phencyclidine Screen,Urine Negative (Negative)
[2019-03-06] MEDS ORDERED: ALBUTEROL 2.5 MG/3 ML NEB RESP TX PRN (19:11)
[2019-03-06] MEDS ORDERED: SODIUM CHLORIDE 0.9% 1,500 ML IV ONE (19:25)
[2019-03-06] MEDS ORDERED: NOREPINEPHRINE 8 MG in SODIUM CHLORIDE 0.9% 242 ML IV SCH (19:30)
[2019-03-06] MEDS ORDERED: LEVOFLOXACIN INJ 500 MG in PREMIX 1 EACH IV ONE (19:30)
[2019-03-06] MEDS ORDERED: PANTOPRAZOLE 40 MG VIAL IV SCH (19:30)
[2019-03-06] MEDS ORDERED: NOREPINEPHRINE 4 MG/4 ML VIAL IV ONE (20:01)
[2019-03-06] MEDS ORDERED: ENOXAPARIN 30 MG/0.3 ML SYRINGE SUBCUT SCH (21:00)
[2019-03-06] MEDS ORDERED: metroNIDAZOLE INJ 500 MG in PREMIX 1 EACH IV SCH (21:00)
[2019-03-06] MEDS ORDERED: SODIUM BICARB INJ 50 MEQ in SODIUM CHLORIDE 0.45% 1,000 ML IV SCH (23:00)
[2019-03-07 01:09] VITALS: BP 85/22
[2019-03-07] MEDS ORDERED: PANTOPRAZOLE 40 MG TABLET PO SCH (09:00)
[2019-03-08] MEDS ORDERED: LEVOFLOXACIN INJ 250 MG in PREMIX 1 EACH IV SCH (16:00)
== END 2019-03-07 00:04 | disposition expired | DRG 871 ==
LOC: EDBD → EDUNIT# → N.ED 15:58 → N.EDINP 19:11 → N.ICU 20:02
PROVIDERS: ADMIT Family Medicine; ATTEND Family Medicine